=== PATIENT | male | born 1955 | race Caucasian/White ===

== ENCOUNTER 2017-05-15 10:40 | Day surgery (SDC) | payer OTHER ==
[2017-05-09 10:45] VITALS: BMI 29.7
[~2017-05-15 10:40] MED LIST: HYDROmorphone 1 MG/ML 1 ML SYRINGE IVP PRN; MORPHINE SULFATE 5 MG/ML SYRINGE IV PRN; ceFAZolin IN SWFI 2 GM/20 ML SYRINGE IVP ONE
[2017-05-15] MEDS ORDERED: LIDOCAINE 1% 20 ML VIAL (10MG/ML) FOR IV START INTRADERMA ONE (11:30)
[2017-05-15] MEDS: LACTATED RINGERS 1,000 ML IV SCH ×2 (11:38→16:56)
[2017-05-15] MEDS ORDERED: ONDANSETRON 4 MG/2 ML VIAL IVP ONE (11:44)
[2017-05-15] MEDS ORDERED: DEXAMETHASONE SOD PHOSPHATE 10 MG/ML 1 ML VIAL IV ONE (11:45)
[2017-05-15 12:03] LABS: Basophils # (A) 0.1 k/uL (0-0.2); Basophils % (A) 1 %; Eosinophils # (A) 0.2 k/uL (0-0.7); Eosinophils % (A) 3 %; HGB 15.7 gm/dL (13.0-17.5); Lymphocytes # (A) 1.4 k/uL (1.0-4.8); Lymphocytes % (A) 16 %; MCH 29.9 pg (25.0-35.0); MCHC 32.6 g/dL (31.0-37.0); MCV 91.6 fL (80.0-100.0); Mean Platelet Volume 7.9; Monocytes # (A) 0.5 k/uL (0-1.0); Monocytes % (A) 6 %; Neutrophils # (A) 6.9 k/uL (1.3-7.7); Neutrophils % (A) 74 %; Platelet Count 354 k/uL (150-450); RBC 5.24 m/uL (4.30-5.90); RDW 12.9 % (11.5-15.5); WBC 9.3 k/uL (3.8-10.6)
[2017-05-15 12:15] LABS: Anion Gap 11 mmol/L; Blood Urea Nitrogen 21 mg/dL (9-20); Calcium 10.2 mg/dL (8.4-10.2); Carbon Dioxide 26 mmol/L (22-30); Chloride 105 mmol/L (98-107); Glucose 101 mg/dL (74-99); Potassium 4.6 mmol/L (3.5-5.1); Sodium 142 mmol/L (137-145)
[2017-05-15] MEDS ORDERED: MIDAZOLAM 2 MG/2 ML VIAL ONE (12:33)
[2017-05-15] MEDS ORDERED: PROPOFOL 10 MG/ML 20 ML VIAL IV ONE (12:33)
[2017-05-15] MEDS ORDERED: fentaNYL (PF) 50 MCG/ML 2 ML AMP ONE (12:33)
[2017-05-15] MEDS ORDERED: ceFAZolin 1,000 MG in SODIUM CHLORIDE 0.9% 1,000 ML IRRIGATION ONE (13:54)
[2017-05-15] MEDS ORDERED: HYDROcodone/APAP 5-325MG 1 EACH TAB PO PRN (14:17)
[2017-05-15] MEDS ORDERED: ONDANSETRON 4 MG/2 ML VIAL IVP PRN (14:17)
[2017-05-15] MEDS ORDERED: hydrOXYzine PAMOATE 25 MG CAP PO PRN (14:17)
[2017-05-15] MEDS ORDERED: TEMAZEPAM 15 MG CAP PO PRN (14:17)
[2017-05-15] MEDS ORDERED: HYDROmorphone 1 MG/ML 1 ML SYRINGE IVP PRN ×3 (14:17)
[2017-05-15] MEDS ORDERED: SENNOSIDES-DOCUSATE SODIUM 1 EACH TAB PO PRN (14:17)
--- NOTE | 2017-05-15 14:27 | XR ---
Fluoroscopy INDICATION: Pain FINDINGS: Images obtained: 2. IMPRESSIONS: 1. Documentation of fluoroscopy.
--- NOTE | 2017-05-15 14:34 | XR ---
Fluoroscopy INDICATION: Pain FINDINGS: Fluoroscopy is provided for open reduction internal fixation of the left ankle. 2 x-rays are presente d ovary plaster splint. Open reduction internal fixation of the distal fibula is evident. Multiple montanez rgical skin guanako are present. IMPRESSIONS: 1. Status post open reduction internal fixation distal fibula
--- NOTE | 2017-05-15 15:27 | FL ---
Fluoroscopy INDICATION: Pain FINDINGS: Fluoroscopy time: 7 seconds. Images obtained: 2. IMPRESSIONS: 1. Documentation of fluoroscopy.
[2017-05-15] MEDS: ceFAZolin IN SWFI 2 GM/20 ML SYRINGE IVP SCH (16:56)
[2017-05-15] MEDS: HYDROcodone/APAP 5-325MG 1 EACH TAB PO PRN (17:51)
[2017-05-15] MEDS: ASPIRIN 325 MG TAB PO SCH (20:14)
[2017-05-16] MEDS: LACTATED RINGERS 1,000 ML IV SCH ×3 (00:09→10:25)
[2017-05-16] MEDS: ceFAZolin IN SWFI 2 GM/20 ML SYRINGE IVP SCH (00:55)
[2017-05-16] MEDS: HYDROcodone/APAP 5-325MG 1 EACH TAB PO PRN ×2 (01:00→07:10)
[2017-05-16 07:08] VITALS: BP 133/74; PULSE 67; RESP 14; TEMP 97.7
[2017-05-16 07:11] LABS: Glucose,Whole Blood 92 mg/dL (75-99)
[2017-05-16] MEDS: ASPIRIN 325 MG TAB PO SCH (08:09)
[2017-05-16] MEDS ORDERED: HYDROcodone/APAP 7.5-325MG 1 EACH TAB PO PRN ×2 (08:32)
--- NOTE | 2017-05-16 08:36 | P.DS ---
Providers Expected date of discharge: 05/16/17 Attending physician: Dwaine Campbell Consults: 05/15/17 14:17 Consult Physician Routine Consulting Provider: Tong Sexton Consult Reason/Comments: medical management Do you want consulting provider notified?: Yes Primary care physician: Tong Sexton - Discharge Diagnosis(es) (1) Tear of deltoid ligament of left ankle Status: Acute (2) Left fibular fracture Status: Acute (3) Status post open reduction with internal fixation (ORIF) of fracture of ankle Status: Acute Hospital Course: This is a 61-year-old male with known history of left ankle pain after a fall. The patient presented to the orthopedic office for evaluation. After discussion and consideration patient was found to have a left fibula fracture and possible deltoid ligament tear that requires surgical intervention. The patient is seen preoperatively by his primary care physician and cleared for surgery. Patient is admitted to observation at [facility] on 05/15/2017 for an ORIF of the left distal fibula with medial deltoid ligament repair. The procedures performed without complication or sequelae. The patient is doing well postoperatively. Labs and vital signs are stable on day of discharge. On day of discharge patient's dressing and splint to the left lower extremity is clean, dry, and intact. There is minimal soft tissue swelling to the left lower extremity. Patient is able to wiggle his toes freely without difficulty Neurovascular status to the left lower extremity is intact. Patient is discharged to home in good condition. Pertinent Studies: Laboratory Tests 05/15/17 11:51 WBC 9.3 RBC 5.24 Hgb 15.7 Hct 48.0 Patient Condition at Discharge: Stable Plan - Discharge Summary Discharge Rx Participant: No New Discharge Prescriptions: New Cephalexin [Keflex] 500 mg PO Q8HR #15 cap HYDROcodone/APAP 7.5-325MG [[place] 7.5-325] 1 - 2 tab PO Q4-6H PRN #90 tab PRN Reason: Pain Aspirin 325 mg PO BID tab Continue Aspirin 325 mg PO BID No Action Metoprolol Tartrate 25 mg PO BID Multivitamin [Men's Multi-Vitamin] 1 each PO DAILY Losartan/Hydrochlorothiazide [Losartan-Hctz 100-25 mg Tab] 1 each PO DAILY Discharge Medication List Aspirin 325 mg PO BID 05/09/17 [History] Losartan/Hydrochlorothiazide [Losartan-Hctz 100-25 mg Tab] 1 each PO DAILY 05/09 [History] Metoprolol Tartrate 25 mg PO BID 05/09/17 [History] Multivitamin [Men's Multi-Vitamin] 1 each PO DAILY 05/09/17 [History] Aspirin 325 mg PO BID tab 05/16/17 [Rx] Cephalexin [Keflex] 500 mg PO Q8HR #15 cap 05/16/17 [Rx] HYDROcodone/APAP 7.5-325MG [[place] 7.5-325] 1 - 2 tab PO Q4-6H PRN #90 tab [Rx] Follow up Appointment(s)/Referral(s): Dwaine Campbell DO [Doctor of Osteopathic Medicine] - 05/30/17 2:00 pm Tong Sexton MD [Primary Care Provider] - 05/27/17 11:10 am Patient Instructions/Handouts: ORIF of an Ankle Fracture (DC) Activity/Diet/Wound Care/Special Instructions: Keep splint clean, dry, and intact Elevate and ice left foot Follow up with Dr. Campbell in 10 days Call [facility] with any questions or concerns, [phone]. Discharge Disposition: HOME SELF-CARE
[2017-05-16] MEDS ORDERED: HYDROmorphone 2 MG/ML 1 ML SYRINGE IVP PRN ×3 (08:44→08:45)
--- NOTE | 2017-05-16 08:57 | P.CONS ---
History of Present Illness - Reason for Consult Consult date: 05/16/17 Review of Systems Constitutional: Denies chills, Denies fever Eyes: denies blurred vision, denies pain Ears, nose, mouth and throat: Denies headache, Denies sore throat Cardiovascular: Denies chest pain, Denies shortness of breath Respiratory: Denies cough Past Medical History Past Medical History: Hypertension History of Any Multi-Drug Resistant Organisms: None Reported Past Surgical History: Tonsillectomy Additional Past Surgical History / Comment(s): L hand surgery. Past Anesthesia/Blood Transfusion Reactions: No Reported Reaction Past Psychological History: No Psychological Hx Reported Smoking Status: Current some day smoker Past Alcohol Use History: None Reported Additional Past Alcohol Use History / Comment(s): Smokes 1 pack per week. Drinks just slightly more than 14 drinks per week. Past Drug Use History: None Reported - Past Family History Mother Family Medical History: No Reported History Medications and Allergies Home Medications Medication Instructions Recorded Confirmed Type Aspirin 325 mg PO BID 05/09/17 05/15/17 History Losartan/Hydrochlorothiazide 1 each PO DAILY 05/09/17 05/15/17 History [Losartan-Hctz 100-25 mg Tab] Metoprolol Tartrate 25 mg PO BID 05/09/17 05/15/17 History Multivitamin [Men's Multi-Vitamin] 1 each PO DAILY 05/09/17 05/15/17 History Aspirin 325 mg PO BID tab 05/16/17 Rx Cephalexin [Keflex] 500 mg PO Q8HR #15 cap 05/16/17 Rx HYDROcodone/APAP 7.5-325MG [[place] 1 - 2 tab PO Q4-6H PRN #90 tab 05/16/17 Rx 7.5-325] Allergies Allergy/AdvReac Type Severity Reaction Status Date / Time meperidine [From Demerol] Allergy Nausea & Verified 05/15/17 11:24 Vomiting Physical Exam Vitals: Vital Signs Temp Pulse Resp BP BP Pulse Ox 05/16/17 07:00 97.7 F 67 14 133/74 97 05/16/17 00:05 97.4 F L 71 16 105/63 98 05/15/17 20:18 98.0 F 69 12 118/67 97 05/15/17 16:15 66 175/75 05/15/17 16:00 50 L 125/75 05/15/17 15:45 50 L 93/68 05/15/17 15:30 55 L 130/76 05/15/17 15:15 52 L 125/77 05/15/17 15:00 98.1 F 51 L 16 125/77 96 05/15/17 14:45 53 L 16 118/68 94 L 05/15/17 14:30 58 L 16 114/63 93 L 05/15/17 14:13 97.8 F 55 L 14 102/60 94 L 05/15/17 11:23 97.7 F 57 L 16 141/69 96 Intake and Output 05/15/17 05/16/17 05/16/17 22:59 06:59 14:59 Intake Total 236 250 Output Total 400 Balance -164 250 Intake: Oral 236 250 Output: Urine 400 Other: Voiding Method Urinal # Voids 2 - Constitutional General appearance: no acute distress - EENT Eyes: EOMI - Neck Neck: no lymphadenopathy - Respiratory Respiratory: bilateral: CTA - Cardiovascular Rhythm: regular Heart sounds: normal: S1, S2 - Gastrointestinal General gastrointestinal: soft, no tenderness - Integumentary Integumentary: no cellulitis - Neurologic Neurologic: CNII-XII intact Results CBC & Chem 7: 05/15/17 11:51 05/15/17 11:51 Labs: Abnormal Lab Results - Last 24 Hours (Table) 05/15/17 Range/Units 11:51 BUN 21 H (9-20) mg/dL Glucose 101 H (74-99) mg/dL Assessment and Plan (1) Essential (primary) hypertension Current Visit: Yes Status: Acute Code(s): I10 - ESSENTIAL (PRIMARY) HYPERTENSION SNOMED Code(s): 17146784 (2) Left fibular fracture Current Visit: Yes Status: Acute Code(s): S82.402A - UNSP FRACTURE OF SHAFT OF LEFT FIBULA, INIT FOR CLOS FX SNOMED Code(s): 05737852 Plan: Continue follow from a surgical perspective. Otherwise, reconcile home medications.
[2017-05-16] MEDS ORDERED: METOPROLOL TARTRATE 25 MG TAB PO SCH (09:15)
[2017-05-16] MEDS ORDERED: LOSARTAN-HCTZ 50-12.5 MG 1 EACH TAB PO SCH (09:15)
[2017-05-16] MEDS ORDERED: MULTIVITAMINS, THERA 1 EACH TAB PO SCH (12:00)
--- NOTE | 2017-05-16 14:03 | OP ---
OPERATIVE REPORT DATE OF SERVICE: 05/15/2017 SURGEON: Dwaine Campbell DO. ELEVATOR CONSTRUCTOR HELPER: Deborah Fleming NP PREOPERATIVE DIAGNOSES: 1. Displaced fracture of the distal left fibula. 2. Tear of the medial deltoid ligament with lateral subluxation. POSTOPERATIVE DIAGNOSES: 1. Displaced fracture of the distal left fibula. 2. Tear of the medial deltoid ligament with lateral subluxation. OPERATION:: Open reduction internal fixation of a displaced distal left fibula fracture with repair of the medial deltoid ligament. ESTIMATED BLOOD LOSS: SPECIMEN TAKEN: DESCRIPTION OF PROCEDURE: The patient was taken to the operative suite and placed in supine position. Spinal anesthesia was performed by the department of anesthesiology. The Betadine prep was carried out over foot and leg. Sterile drapes applied in the usual manner. Pneumatic tourniquet was inflated to 350 mmHg. A lateral incision was developed over the distal fibular fracture. Blunt dissection through the subcutaneous tissue was performed. Periosteal elevator was utilized in freeing soft tissue from the distal fibula as well as the fracture site. The area was irrigated and hematoma was evacuated. Reduction of the distal fibula was carried out and held with a lobster clamp. A 6 hole plate was then shaped in preparation for securing alignment of distal fibular fracture with a buttress plate. Fixation with 6 hole and 1/4 mm cancellous screws were utilized in stabilizing fracture. X-rays were obtained documented the alignment and stability. A curved incision was developed over the medial and lateral deltoid area. Blunt dissection through the subcutaneous tissue was performed. Direct visualization of the ruptured deltoid ligament was noted. No impingement of soft tissue in tibiotalar area. Following the reduction of this area, a #1 Ethibond suture in horizontal mattress fashion was utilized in reapproximating the deltoid ligament. X-rays were again obtained showing the improvement of the tibiotalar diastasis. The deep fascia was then approximated with 2-0 Vicryl suture. Skin was approximated with 3-0 Quill suture in subcuticular fashion. The lateral wound was closed with 2.0 Vicryl suture and deep tissue approximated with 3.0 Quill suture in subcuticular fashion. Betadine, Adaptic and sterile pressure dressing was applied. Patient was placed in a well-padded splint. Patient was transferred to recovery room in satisfactory postoperative condition. GROSS PATHOLOGY: There was evidence of a displaced fracture of the distal left fibula with tibiotalar diastasis and 3 degree tear of the medial deltoid ligament. IJEOMA / IJN: [id number] / ERIS
== END 2017-05-16 11:30 | disposition home or self-care (01) ==
LOC: OR 10:40 → 3SUR 13:59 → OR 05-16 11:30
PROVIDERS: ATTEND Orthopaedic Surgery
DX: S82.832A Other fracture of upper and lower end of left fibula, initial encounter for closed fracture (principal); S93.422A Sprain of deltoid ligament of left ankle, initial encounter; W00.0XXA Fall on same level due to ice and snow, initial encounter; I10 Essential (primary) hypertension; F17.200 Nicotine dependence, unspecified, uncomplicated; Z79.82 Long term (current) use of aspirin; Z79.899 Other long term (current) drug therapy; Z79.2 Long term (current) use of antibiotics; Z88.5 Allergy status to narcotic agent
CPT/HCPCS: 27792; 27695; 80048; 85025; 73600; C1713; J2250; J1100; J0690 ×3; J2405; J3010; J1170; J2704

== ENCOUNTER → 2017-11-03 | Outpatient (CLI) | payer OTHER ==
[2017-11-03 15:52] LABS: HCT 47.1 % (39.0-53.0); HGB 15.6 gm/dL (13.0-17.5); MCH 29.6 pg (25.0-35.0); MCHC 33.1 g/dL (31.0-37.0); MCV 89.3 fL (80.0-100.0); Mean Platelet Volume 7.6; Platelet Count 320 k/uL (150-450); RBC 5.27 m/uL (4.30-5.90); RDW 13.4 % (11.5-15.5); WBC 8.6 k/uL (3.8-10.6)
[2017-11-03 16:09] LABS: Blood Urea Nitrogen 18 mg/dL (9-20)
== END | disposition home or self-care (01) ==
LOC: LABPAT 15:00
PROVIDERS: ATTEND Internal Medicine Cardiovascular Disease
DX: Z01.812 Encounter for preprocedural laboratory examination (principal); I42.9 Cardiomyopathy, unspecified
CPT/HCPCS: 36415; 82565; 84520; 85027

== ENCOUNTER → 2017-11-10 | Day surgery (SDC) | payer OTHER ==
[2017-11-04 11:21] VITALS: BMI 30.3
[~2017-11-10] MED LIST changes: +ALPRAZolam 0.25 MG TAB PO PRN; +ALPRAZolam 0.5 MG TAB PO PRN; +ASPIRIN 325 MG TAB PO STA; +ATORVASTATIN 80 MG TAB PO STA; +HEPARIN SODIUM 1,000 UN/ML (10ML VL) IV ONE; -HYDROmorphone 1 MG/ML 1 ML SYRINGE IVP PRN; +IOPAMIDOL-370 125ML BTL INJ ONE; +LIDOCAINE 1% INJ 10MG/ML (20 ML MDV) SQ ONE; +MIDAZOLAM 2 MG/2 ML VIAL IVP ONE; -MORPHINE SULFATE 5 MG/ML SYRINGE IV PRN; +NITROGLYCERIN SL TABS 0.4 MG TAB SUBLINGUAL PRN; +RX INFO: IV CONTRAST WAS GIVEN 1 EACH MISC MISCELLANE PRN; +SODIUM CHLORIDE 0.9% 1,000 ML IV SCH; +SODIUM CHLORIDE 0.9% 1,000 ML in EMPTY BAG 1 BAG IV ONE; +VERAPAMIL SYRINGE (5 MG/10 ML) INTRAARTER ONE; -ceFAZolin IN SWFI 2 GM/20 ML SYRINGE IVP ONE; +fentaNYL (PF) 50 MCG/ML 2 ML AMP IVP ONE
[2017-11-10 11:34] VITALS: TEMP 97.8
[2017-11-10 16:05] VITALS: BP 106/57; PULSE 49; RESP 18
--- NOTE | 2017-11-10 19:17 | P.CARDCATH ---
Date of Procedure: 11/10/17 Preoperative Diagnosis: Exercise induced V. tach, cardiomyopathy Postoperative Diagnosis: Normal coronary arteries. Normal LV function. Elevated end-diastolic pressures Procedure(s) Performed: Left heart catheterization with left ventriculography Description of Procedure: HISTORY: This is a 62-year-old gentleman with history of cardiomyopathy and cardiac arrhythmia in the form of SVT who recently had a stress test. Patient developed episodes of polymorphic V. tach. He is advised to have a cardiac catheterization for definitive diagnosis. CONSENT:I have discussed the risks, benefits and alternative therapies for the above-mentioned procedure and for both sedation/analgesia as well as necessary blood product administration, if indicated, as they pertain to this patient. The patient has indicated understanding and acceptance of the risks and procedures discussed. PROCEDURE: Patient was brought to the lab in a fasting state. Patient was given some IV sedation. The right wrist is infiltrated with lidocaine and right radial artery was entered using Seldinger technique. A 6-Frisian catheter was left in place and selective coronary arteriography and left ventriculography was performed. Patient tolerated the procedure well. TR band was applied for hemostasis .No immediate complications were noted and patient was transferred to [facility] in a stable condition. He and patient will be discharged home later today Conscious Sedation: Versed 1 mg Fentanyl 50 g Duration 26 minutes HEMODYNAMICS: The aortic pressure is about 130/80. Left ankle end-diastolic pressure is about 20-25. There was no gradient across the aortic valve SELECTIVE CORONARY ARTERIOGRAPHY: LEFT MAIN: Normal length and patent THE LEFT ANTERIOR DESCENDING CORONARY ARTERY: Good caliber vessel and free of occlusive disease THE LEFT CIRCUMFLEX AND IS CORONARY ARTERY: Good caliber vessel. Free of occlusive disease THE RIGHT CORONARY ARTERY: Dominant vessel and free of occlusive disease LEFT VENTRICULOGRAPHY: Revealed normal-sized cardiac silhouette with preserved LV function FINAL IMPRESSION: Normal coronary arteries. Elevated end-diastolic pressure and diastolic dysfunction PLAN: Maximum medical therapy and risk factor modification PROGNOSIS: Fair
== END ==
LOC: CATHCVL 10:52
PROVIDERS: ATTEND Internal Medicine Cardiovascular Disease
DX: I47.1 Supraventricular tachycardia (principal); R94.39 Abnormal result of other cardiovascular function study; I42.6 Alcoholic cardiomyopathy; I10 Essential (primary) hypertension; R60.0 Localized edema; I49.3 Ventricular premature depolarization; F10.10 Alcohol abuse, uncomplicated; F17.210 Nicotine dependence, cigarettes, uncomplicated; Z79.899 Other long term (current) drug therapy; Z88.5 Allergy status to narcotic agent
CPT/HCPCS: 93458; 84132; C1894; C1769; J2250; J2001; J3010; J1644; Q9967

== ENCOUNTER → 2019-01-25 | Outpatient (CLI) | payer OTHER ==
[2019-01-25 08:06] LABS: HCT 44.9 % (39.0-53.0); HGB 15.5 gm/dL (13.0-17.5); MCH 31.3 pg (25.0-35.0); MCHC 34.5 g/dL (31.0-37.0); MCV 90.6 fL (80.0-100.0); Mean Platelet Volume 7.8; Platelet Count 309 k/uL (150-450); RBC 4.95 m/uL (4.30-5.90); RDW 13.7 % (11.5-15.5); WBC 6.2 k/uL (3.8-10.6)
[2019-01-25 08:16] LABS: African American GFR (CKD) >90 (>60 ml/min/1.73 sqM); Anion Gap 9 mmol/L; Blood Urea Nitrogen 17 mg/dL (9-20); Carbon Dioxide 27 mmol/L (22-30); Chloride 106 mmol/L (98-107); Glucose 164 mg/dL (74-99); Potassium 4.1 mmol/L (3.5-5.1); Sodium 142 mmol/L (137-145)
== END | disposition home or self-care (01) ==
LOC: LABPAT 07:32
PROVIDERS: ATTEND Internal Medicine Clinical Cardiac Electrophysiology
DX: Z01.812 Encounter for preprocedural laboratory examination (principal); I47.1 Supraventricular tachycardia; I47.2 Ventricular tachycardia
CPT/HCPCS: 36415; 80051; 82565; 82947; 84443; 84520; 85027

== ENCOUNTER 2019-02-02 09:32 | Day surgery (SDC) | payer OTHER ==
[~2019-02-02 09:32] MED LIST changes: -ALPRAZolam 0.25 MG TAB PO PRN; -ALPRAZolam 0.5 MG TAB PO PRN; -ASPIRIN 325 MG TAB PO STA; -ATORVASTATIN 80 MG TAB PO STA; -HEPARIN SODIUM 1,000 UN/ML (10ML VL) IV ONE; -IOPAMIDOL-370 125ML BTL INJ ONE; -LIDOCAINE 1% INJ 10MG/ML (20 ML MDV) SQ ONE; -MIDAZOLAM 2 MG/2 ML VIAL IVP ONE; -NITROGLYCERIN SL TABS 0.4 MG TAB SUBLINGUAL PRN; -RX INFO: IV CONTRAST WAS GIVEN 1 EACH MISC MISCELLANE PRN; -SODIUM CHLORIDE 0.9% 1,000 ML in EMPTY BAG 1 BAG IV ONE; -VERAPAMIL SYRINGE (5 MG/10 ML) INTRAARTER ONE; -fentaNYL (PF) 50 MCG/ML 2 ML AMP IVP ONE
[2019-02-02] MEDS ORDERED: PROPOFOL 10 MG/ML 20 ML VIAL IV ONE (12:14)
[2019-02-02] MEDS ORDERED: METOPROLOL TARTRATE 5 MG/5 ML VIAL IVP ONE (12:14)
[2019-02-02] MEDS ORDERED: diphenhydrAMINE 50 MG/ML 1 ML VIAL ONE (12:14)
[2019-02-02] MEDS ORDERED: ISOPROTERENOL 250 MCG/1.25 ML SYR IV ONE (12:14)
[2019-02-02] MEDS ORDERED: MIDAZOLAM 2 MG/2 ML VIAL ONE (12:14)
[2019-02-02] MEDS ORDERED: GLYCOPYRROLATE 0.2 MG/ML 2 ML VIAL ONE (12:14)
[2019-02-02] MEDS ORDERED: fentaNYL (PF) 50 MCG/ML 2 ML AMP ONE (12:14)
--- NOTE | 2019-02-02 12:54 | P.HPCAR ---
History of Present Illness This is Amy Song PA-C dictating an H&P on this patient The patient was interviewed and examined by me as well as by Dr. Thompson Case discussed with Dr. Thompson and he agrees with the plan of care IMPRESSION / ASSESSMENT: Exercise-induced nonsustained ventricular tachycardia, symptomatic Frequent PVCs Exercise-induced supraventricular tachycardia Normal coronary arteries Nonischemic cardiomyopathy, cardiac echo MRI showing a mildly reduced global systolic function, EF 50%, focal areas of gadolinium enhancement in non ischemic distribution PLAN: proceed with diagnostic EP study and further management there after HPI Patient is a 63-year-old male with a past medical history of hypertension, SVT, exercise-induced ventricular arrhythmias, and nonischemic cardiomyopathy who presents for evaluation and management of nonsustained ventricular tachycardia, frequent PVCs, and SVT. Patient has had symptoms of shortness of breath with moderate to high intensity exertion for the last several years. He underwent evaluation with multiple stress tests which showed NSVT, frequent PVCs and SVT with exercise. Coronary angiogram showed normal coronary arteries. Echocardiogram showed EF 50%. Cardiac MRI showed dilated LV with mildly reduced global systolic function, EF 50%, focal areas of late gadolinium enhancement within the basal septum and mid distal inferior LV wall in the nonischemic distribution. Patient seen and examined resting in bed. Denies dizziness, lightheadedness, palpitations or syncope. Denies chest pain or shortness of breath recently. He only gets short of breath if he "overexerts himself". Sleeps comfortably at night, no orthopnea or PND. He was recently treated for an upper respiratory infection with oral antibiotics. His last dose was today. States he is feeling better, no fevers or chills. ROS: No fevers, chills or rigors, no cough, phlegm or expectoration, no nausea, vomiting or diarrhea, no hematuria, dysuria, no musculoskeletal complaints, no strokes or seizures, no skin lesions. EXAMINATION: Temperature 98.8F, pulse 56, respirations 16, blood pressure 136/75, oxygen saturation 96% on room air Patient seen and examined resting comfortably in bed, in no acute distress Lungs are clear to auscultation bilaterally, no wheezing rhonchi or crackles Heart is regular, normal S1-S2, no murmurs noted No elevated JVD No lower extremity edema Abdomen soft, nontender REVIEW OF LABS, ECG & MEDICAL DATA Most recent labs reviewed, WBC 6.2, hemoglobin 15.5, platelets 309, potassium 4.1, BUN 17, creatinine 0.79, TSH 1.28 Physical Exam Vitals: Vital Signs Temp Pulse Resp BP Pulse Ox 02/02/19 10:28 98.8 F 56 L 16 136/75 96 Intake and Output 02/01/19 02/02/19 02/02/19 22:59 06:59 14:59 Intake Total 20 Balance 20 Intake: IV 20 Past Medical History Past Medical History: Hypertension, Pneumonia Additional Past Medical History / Comment(s): Hx "walking Pneumonia 2 weeks ago." History of Any Multi-Drug Resistant Organisms: None Reported Past Surgical History: Orthopedic Surgery, Tonsillectomy Additional Past Surgical History / Comment(s): Left hand surgery, left ankle surgery with plate. Past Anesthesia/Blood Transfusion Reactions: No Reported Reaction Past Psychological History: No Psychological Hx Reported Smoking Status: Current some day smoker Past Alcohol Use History: Heavy Additional Past Alcohol Use History / Comment(s): Smokes 1 pack per week. Drinks one case of beer per week. Past Drug Use History: None Reported - Past Family History Mother Family Medical History: No Reported History Physical Examination Vital Signs Temp Pulse Resp BP Pulse Ox 02/02/19 10:28 98.8 F 56 L 16 136/75 96 Intake and Output 02/01/19 02/02/19 02/02/19 22:59 06:59 14:59 Intake Total 20 Balance 20 Intake: IV 20 Results Current Medications Generic Name Dose Route Start Last Admin Trade Name Freq PRN Reason Stop Dose Admin Sodium Chloride 1,000 mls @ 20 mls/hr 02/02/19 06:14 02/02/19 10:28 Saline 0.9% IV 20 mls .Q24H SHANICE Administration Intake and Output 02/01/19 02/02/19 02/02/19 22:59 06:59 14:59 Intake Total 20 Balance 20 Intake: IV 20
[2019-02-02] MEDS ORDERED: LIDOCAINE 1% INJ 10MG/ML (20 ML MDV) ONE ×3 (12:55→15:50)
[2019-02-02] MEDS ORDERED: LIDOCAINE 1% INJ 10MG/ML (20 ML MDV) SQ ONE ×2 (13:02→16:27)
[2019-02-02] MEDS ORDERED: SODIUM CHLORIDE 0.9% 1,000 ML IV ONE (15:01)
[2019-02-02] MEDS ORDERED: IOPAMIDOL-250 50ML BTL IV ONE (15:15)
[2019-02-02] MEDS ORDERED: SODIUM CHLORIDE 0.9% 1,000 ML IV SCH ×2 (15:15)
[2019-02-02] MEDS ORDERED: ceFAZolin 1,000 MG in SODIUM CHLORIDE 0.9% IRRIGATIO 250 ML IRRIGATION ONE (15:32)
[2019-02-02] MEDS ORDERED: HYDROcodone/APAP 5-325MG 1 EACH TAB PO PRN (17:24)
[2019-02-02] MEDS ORDERED: ACETAMINOPHEN TAB 325 MG TAB PO PRN (17:24)
[2019-02-02 18:15] VITALS: BMI 29.9
[2019-02-02 18:21] VITALS: RESP 18
[2019-02-02] MEDS ORDERED: ACETAMINOPHEN IV (For NPO) 1,000 MG in EMPTY BAG 1 BAG IVPB ONE (19:00)
[2019-02-02] MEDS: APIXABAN 5 MG TAB PO SCH (19:41)
[2019-02-02] MEDS: SOTALOL 80 MG TAB PO SCH (19:41)
[2019-02-02] MEDS ORDERED: PRAVASTATIN SODIUM 20 MG TAB PO SCH (21:00)
--- NOTE | 2019-02-02 22:15 | PCN ---
PROCEDURE NOTE Neil Roberts is a 63-year-old male patient who has exercise-induced arrhythmias. He has frequent PVCs, nonsustained runs of VT as well as exercise induced VT. Some of these nonsustained runs are polymorphic. In addition, he has nonsustained runs of atrial tachycardia. His coronary arteries are normal. His 2D echo showed ejection fraction of 50%. He underwent a cardiac MRI that showed left ventricular ejection fraction of 50%. The LV was mildly dilated. There were focal areas of late gadolinium enhancement in the basal septum and the mid to distal inferior LV wall with nonischemic distribution. He does not have congestive heart failure. He is brought in for diagnostic EP study to assess for ventricular arrhythmias as well as for atrial arrhythmias and underwent a detailed EP study. DESCRIPTION OF PROCEDURE: Patient was brought to the EP lab in a fasting state. Written informed consent was obtained prior to the procedure. The right groin was prepped and draped as per protocol. Three venous sheaths were placed in the right femoral vein. Via these, 3 diagnostic catheters were placed in the right heart (high right atrial catheter, His bundle catheter, RV catheter). Baseline measurements were as follows: Sinus cycle length 917 milliseconds, MS interval 172 milliseconds, QRS 116 milliseconds, QT interval 425 milliseconds. The baseline AH interval 93 milliseconds, HV interval 33 milliseconds. Sinus node recovery times at 600, 500 and 400 milliseconds were 660 milliseconds, 1260 and 770 milliseconds. This is consistent with possible sinus node entrance block. No delta waves. No slow pathway conduction. AV node Wenckebach block 350 milliseconds, VA Wenckebach block 370 milliseconds. Ventricular extra stimulation was performed up to double extra stimuli. Atrial extra stimulation was performed after double extra stimuli. Two drive trains were used. Nonsustained runs of ventricular tachycardia were induced. These were short episodes. No sustained arrhythmias were induced. Burst stimulation was performed and long runs of nonsustained ventricular tachycardia were noted with burst stimulation of the RV apex. Two particular episodes were notable. One had a left bundle branch block morphology with an early transition in V2 with positive QRS in lead 1 and AVL, and and negative in AVR and lead 3. The 2nd nonsustained run had initially had a left bundle branch block morphology and then switched over to right bundle branch block morphology. Thereafter, Isuprel was used and burst stimulation was once again performed. At a pacing cycle length of 370 milliseconds, ventricular flutter like rhythm was induced (very fast VT with a cycle length of 180 milliseconds. This had a right bundle branch block like morphology, but the lead 1 and aVL were completely negative (QS pattern). This patient was pace terminated successfully. However, with high-dose Isuprel, he went into atrial fibrillation with RVR. Given organized atrial fibrillation. Isuprel was stopped. IV metoprolol was used to reverse Isuprel because the patient was having different morphologies of nonsustained VT on Isuprel. At the end of the procedure, catheter was removed and there was a detailed discussion with the patient, who was almost completely awake through most of the procedure. Subsequently, I discussed this with the family members. I recommended a dual-chamber ICD implant for secondary prevention of sudden cardiac in view of the fact that we had easily induced ventricular flutter with burst stimulation at 370 milliseconds on Isuprel. In addition to the runs of nonsustained ventricular tachycardia he was experiencing without Isuprel. He does have a mildly abnormal cardiac MRI with relatively preserved LV systolic function. A dual-chamber ICD is being recommended because I will also treat him with sotalol and he does have evidence of sinus node dysfunction and atrial arrhythmias, and I would treat him with high-dose beta blockers as well as the sotalol for suppression of arrhythmias. The family was in agreement. The patient was in agreement and we will proceed with a dual- chamber ICD. IMPRESSION: 1. Abnormal EP study with evidence of abnormal sinus node function. 2. Normal AV node function. 3. Easily inducible atrial fibrillation. 4. Very easily inducible long runs of nonsustained ventricular tachycardia of different morphologies and finally easily inducible fast VT, hemodynamically unstable. Almost like like ventricular flutter. Risk of sudden , sudden cardiac arrest is high. MMODL / IJN: [id number] /
--- NOTE | 2019-02-02 22:21 | LTR ---
DATE OF SERVICE: 02/02/2019 Dear Tong: I had the pleasure seeing Mr. Roberts in electrophysiology consultation and in electrophysiology follow up. As you know, Mr. Roberts has very frequent runs of exercise induced VT of differing morphologies. He also has runs of atrial tachycardia. His cardiac MRI shows mildly dilated left ventricle, ejection fraction 50%, but 2 areas of delayed enhancement, one in the basal septum and the other in the inferior wall. He underwent a diagnostic EP study and was able to induce runs of nonsustained ventricular tachycardia of different morphologies, but finally on Isuprel, I was able to induce very fast VT, hemodynamically unstable, almost like ventricular flutter. In addition, I also induced atrial fibrillation. In view of his history, the abnormal cardiac MRI, he appears to be at very high risk for sudden cardiac arrest despite the fact that his left ventricular systolic function is well preserved and I would recommend implantation of a dual-chamber ICD. I have discussed this with the family members and the patient and they were agreeable with the plan and I will proceed with this today. Subsequently, I would like to treat him with high-dose beta blockers and sotalol for suppression of ventricular tachycardia and atrial fibrillation. Thank you for entrusting me in the care of your patient. Warm regards, Sincerely, IJEOMA / MIREYAN: [id number] /
--- NOTE | 2019-02-02 22:43 | PCN ---
PROCEDURE NOTE Neil Roberts is a 63-year-old male patient who had easily inducible ventricular flutter/fast VT sustained hemodynamically unstable. He has an abnormal cardiac MRI and he has frequent nonsustained ventricular tachycardia of different morphologies. He has an abnormal sinus node function with sinus node entrance block, here abnormal sinus node function, EP study. A dual-chamber ICD was implanted. He also has runs of atrial tachycardia and had easily inducible atrial fibrillation, paroxysmal. DESCRIPTION OF PROCEDURE: Patient was in the EP lab. The left pectoral area was prepped and draped as per protocol. IV antibiotics were administered. A 4 cm incision made parallel to the deltopectoral groove, about 1.5 cm medial to it. The incision was carried down to the level of the pectoralis muscle. A subfascial pocket was made. Hemostasis was assured. The left axillary vein was accessed at 2 separate points under fluoroscopy and via appropriately-sized introducer sheaths 2 leads were positioned in the right heart. The atrial lead was a [employer], 52 cm in length and model #2088TC, serial number [id number]. This was screwed in the right atrial appendage. P waves were 1.2 mV during atrial fibrillation but were in sinus rhythm were between 4-6 mV. Pacing impedance 550 ohms. The RV lead was positioned in the low RV septum. R-waves 11 mV. Pacing impedance 680 ohms, pacing threshold 0.25 V at 0.5 milliseconds, 10 V test was negative. protocol was used for the placement. The leads were secured to the underlying pectoralis fascia using 2 nonabsorbable sutures. Pocket was irrigated with antibiotic solution. Leads were connected to the generator. ([employer] model [id number] Q serial #[id number]). The leads and generator were then placed in subfascial pocket. The wound was closed in 3 layers and dressed per protocol. LEFT UPPER EXTREMITY VENOGRAM: Prior to starting the ICD implant, 50 mL of dye was injected in the left upper arm to identify the axillary vein. The left axillary vein, left subclavian and innominate veins were patent. DFT TESTING UNDER ANESTHESIA: Shock and T-wave protocol was used to induce ventricular fibrillation. This was detected at least sensitivity with 4 drop outs. A 10 joule shock was unsuccessful. High-voltage impedance 72 ohms. However, there was a type 2 conversion thereafter. Further testing was not performed. The device was then programmed with DDD 51/30 with mode switch and a long AV delay to avoid RV pacing. RESULTS: Successful dual-chamber ICD implantation for secondary prevention of sudden cardiac with underlying mild sick sinus syndrome and need for adding antiarrhythmic drug therapy for suppressive therapy for ventricular arrhythmias or multiple different morphologies as well as atrial tachycardia and inducible atrial fibrillation. PLAN: Start sotalol. Switch to Toprol-XL. Start low-dose losartan. Stop losartan hydrochlorothiazide. Stop nadolol and start Pravachol 20 mg p.o. daily and Eliquis for a month to assess the nature of his atrial fibrillation. MMODL / IJN: [id number] /
--- NOTE | 2019-02-03 07:49 | P.DS ---
Providers Attending physician: Eliel Thompson Primary care physician: Tong Cooley [facility] Course: 0365 Plan - Discharge Summary Discharge Rx Participant: Yes New Discharge Prescriptions: New RX: Sotalol [Betapace] 80 mg PO BID #180 tablet RX: Losartan [Cozaar] 25 mg PO DAILY #90 tab Apixaban [Eliquis] 5 mg PO BID #180 tab Pravastatin Sodium [Pravachol] 20 mg PO HS #90 tab RX: Metoprolol Succinate [Toprol XL] 50 mg PO DAILY #90 tab.er.24h Discontinued Losartan/Hydrochlorothiazide [Losartan-Hctz 100-25 mg Tab] 1 each PO DAILY Nadolol [Corgard] 20 mg PO DAILY No Action Multivitamin [Men's Multi-Vitamin] 1 each PO DAILY Discharge Medication List Multivitamin [Men's Multi-Vitamin] 1 each PO DAILY 05/09/17 [History] Apixaban [Eliquis] 5 mg PO BID #180 tab 02/02/19 [Rx] Pravastatin Sodium [Pravachol] 20 mg PO HS #90 tab 02/02/19 [Rx] RX: Losartan [Cozaar] 25 mg PO DAILY #90 tab 02/02/19 [Rx] RX: Metoprolol Succinate [Toprol XL] 50 mg PO DAILY #90 tab.er.24h 02/02/19 [Rx] RX: Sotalol [Betapace] 80 mg PO BID #180 tablet 02/02/19 [Rx] Follow up Appointment(s)/Referral(s): Eliel Thompson MD [STAFF PHYSICIAN] - 1 Week (Follow up with the device clinic in 7 days follow up with Dr. Thompson/Amy Song/Yuni Styles same-day) Activity/Diet/Wound Care/Special Instructions: PATIENT EDUCATION MATERIAL Instructions following a heart rhythm device implant. 1. Keep dressing DRY for 5 DAYS. You may cover the area with Saran or Cling Wrap, prior to a shower. 2. The dressing will be removed in the Device Clinic at [facility]. Absorbable sutures were used to close the wound. 3. Avoid raising the left arm above the shoulder level. 4 week restriction 4. Avoid arm movements, like backscratching, rubbing the head, or pulling on a cord. 4 weeks restriction 5. Gentle range of motion movements of the shoulder, closest to the incision sh ould be performed to avoid a frozen shoulder. (Pendulum exercises of the shoulder) 6. The opposite arm may be used freely. 7. Avoid driving for 7 days. 8. Avoid activities such as golfing, swimming, weed whacking, lifting more than 10 pounds weight, bowling, gymnastics and weight training/lifting. (6 weeks restriction) 9. Activities such as wood chopping with an axe, pull-ups in the gymnasium, power lifting, arc-welding, being close to home induction cooktops will always be a problem. 10. Arm sling is only a reminder not to raise the arm above the head. You do not need to keep the arm completely immobilized. Your free to move the arm and use it and for normal activities. In case of any problems, please call [facility], David Townsend, @ [phone], Attention: Device Clinic Device clinic follow-up in 5 days Follow-up with primary contracting executive in 2-3 months Post EP study 1. Keep access sites dry for 2 days. 2. No heavy lifting or straining for 2 days. 3. Avoid bending the hips repeatedly for 2 days. 4. You may go up and down stairs slowly Call if the following is noted 1. Bleeding, increasing swelling or pain at the access sites. 2. Increasing chest discomfort, especially upon taking a deep breath. 3. Increasing shortness of breath, at rest or with exertion. 4. Undue cough / phlegm 5. Difficulty or pain while swallowing. 6. Pain or change in color in the extremities. 7. Fever, chills, rigors. 8. Increasing headache or neurologic symptoms. 9. Dizziness, fainting, palpitations Stop your losartanhydrochlorothiazide and nadolol start sotalol 80 mg twice daily, losartan 25 mg once daily in the evening, metoprolol succinate 50 mg daily, pravastatin 20 mg at night, and eliquis 5 mg twice daily
--- NOTE | 2019-02-03 07:51 | P.DS ---
Providers Attending physician: Eliel Thompson Primary care physician: Tong Sexton [facility] Course: Patient is doing well from a chronic standpoint. Sitting comfortably in bed minimal discomfort Groins of healed well no hematoma no swelling or pain No chest discomfort dizziness lightheadedness palpitations breathing is comfortable Afebrile 97.8F pulse rate in the 50s blood pressure 126/76. His mercury normal respirations Normal heart sounds S1-S2 is normal no murmurs or gallops or rub Breath sounds are clear no rhonchi no crackles Abdomen is soft nontender Extremity is warm no edema Impression Recurrent exercise-induced arrhythmias namely nonsustained ventricular tachycardia morphologies Frequent PVCs ventricular couplets and nonsustained atrial arrhythmias Inducible atrial fibrillation yesterday the patient is back in sinus rhythm Inducible ventricular flutter/hemodynamically unstable faster VT from the originating in lateral wall of the LV Abnormal cardiac MRI with ejection fraction of 50% mildly dilated LV and delayed enhancement in the basal septum in the mid to distal inferior LV wall Abnormal sinus node function Status post dual-chamber ICD Plan IV antibiotics, chest x-ray, dual-chamber ICD interrogation today Twelve-lead ECG today to check QT interval 1 more dose of ELIQUIS and then stop. Stop losartan and hydrochlorothiazide, stopped nadolol Start Toprol-XL 50 mrem by mouth daily in the morning Losartan 25 mg in the evening Pravachol 20 mg the evening Sotalol 80 mg twice daily in addition to Toprol Follow-up in the device clinic and Follow-up with Dr. Thompson/Amy Song/Yuni Styles for twelve-lead ECG and checking the QT interval after week Patient will stay off work for about a month Plan - Discharge Summary Discharge Rx Participant: Yes New Discharge Prescriptions: New Sotalol [Betapace] 80 mg PO BID #180 tablet Losartan [Cozaar] 25 mg PO DAILY #90 tab Pravastatin Sodium [Pravachol] 20 mg PO HS #90 tab Metoprolol Succinate [Toprol XL] 50 mg PO DAILY #90 tab.er.24h Discontinued Losartan/Hydrochlorothiazide [Losartan-Hctz 100-25 mg Tab] 1 each PO DAILY Nadolol [Corgard] 20 mg PO DAILY No Action Multivitamin [Men's Multi-Vitamin] 1 each PO DAILY Discharge Medication List Multivitamin [Men's Multi-Vitamin] 1 each PO DAILY 05/09/17 [History] Losartan [Cozaar] 25 mg PO DAILY #90 tab 02/02/19 [Rx] Metoprolol Succinate [Toprol XL] 50 mg PO DAILY #90 tab.er.24h 02/02/19 [Rx] Pravastatin Sodium [Pravachol] 20 mg PO HS #90 tab 02/02/19 [Rx] Sotalol [Betapace] 80 mg PO BID #180 tablet 02/02/19 [Rx] Follow up Appointment(s)/Referral(s): Eliel Thompson MD [STAFF PHYSICIAN] - 1 Week (Follow up with the device clinic in 7 days follow up with Dr. Thompson/Amy Song/Yuni Styles same-day) Activity/Diet/Wound Care/Special Instructions: PATIENT EDUCATION MATERIAL Instructions following a heart rhythm device implant. 1. Keep dressing DRY for 5 DAYS. You may cover the area with Saran or Cling Wrap, prior to a shower. 2. The dressing will be removed in the Device Clinic at [facility]. Absorbable sutures were used to close the wound. 3. Avoid raising the left arm above the shoulder level. 4 week restriction 4. Avoid arm movements, like backscratching, rubbing the head, or pulling on a cord. 4 weeks restriction 5. Gentle range of motion movements of the shoulder, closest to the incision should be performed to avoid a frozen shoulder. (Pendulum exercises of the shoulder) 6. The opposite arm may be used freely. 7. Avoid driving for 7 days. 8. Avoid activities such as golfing, swimming, weed whacking, lifting more than 10 pounds weight, bowling, gymnastics and weight training/lifting. (6 weeks restriction) 9. Activities such as wood chopping with an axe, pull-ups in the gymnasium, power lifting, arc-welding, being close to home induction cooktops will always be a problem. 10. Arm sling is only a reminder not to raise the arm above the head. You do not need to keep the arm completely immobilized. Your free to move the arm and use it and for normal activities. In case of any problems, please call [facility], David Townsend, @ [phone], Attention: Device Clinic Device clinic follow-up in 5 days Follow-up with primary cotton expert in 2-3 months Post EP study 1. Keep access sites dry for 2 days. 2. No heavy lifting or straining for 2 days. 3. Avoid bending the hips repeatedly for 2 days. 4. You may go up and down stairs slowly Call if the following is noted 1. Bleeding, increasing swelling or pain at the access sites. 2. Increasing chest discomfort, especially upon taking a deep breath. 3. Increasing shortness of breath, at rest or with exertion. 4. Undue cough / phlegm 5. Difficulty or pain while swallowing. 6. Pain or change in color in the extremities. 7. Fever, chills, rigors. 8. Increasing headache or neurologic symptoms. 9. Dizziness, fainting, palpitations Stop your losartanhydrochlorothiazide and nadolol start sotalol 80 mg twice daily, losartan 25 mg once daily in the evening, metoprolol succinate 50 mg daily, pravastatin 20 mg at night,
[2019-02-03] MEDS: SOTALOL 80 MG TAB PO SCH (08:27)
[2019-02-03] MEDS: APIXABAN 5 MG TAB PO SCH (08:27)
[2019-02-03] MEDS ORDERED: METOPROLOL SUCCINATE (ER) 50 MG TAB.ER.24H PO SCH (09:00)
--- NOTE | 2019-02-03 09:08 | XR ---
EXAMINATION TYPE: XR chest 2V DATE OF EXAM: 02/03/2019 COMPARISON: NONE HISTORY: Lead placement check TECHNIQUE: Frontal and lateral views of the chest are obtained. FINDINGS: There is a generator in left pectoral region, leads are present in the right atrium and ve ntricle. No evident pneumothorax or pleural effusion. Heart size within normal limits. No evident air space disease. Wedge compression deformity present at the lower thoracic spine. IMPRESSION: No evident complication status post lead placement, additional findings above.
[2019-02-03 11:10] VITALS: BP 132/76; PULSE 51; TEMP 97.7
[2019-02-03] MEDS ORDERED: LOSARTAN 25 MG TAB PO SCH (19:00)
== END 2019-02-03 14:44 | disposition home or self-care (01) ==
LOC: CATHEP 09:32 → 1SOBS 17:48 → CATHEP 02-03 14:44
PROVIDERS: ATTEND Internal Medicine Clinical Cardiac Electrophysiology
DX: I49.5 Sick sinus syndrome (principal); I48.0 Paroxysmal atrial fibrillation; I45.2 Bifascicular block; I42.9 Cardiomyopathy, unspecified; I10 Essential (primary) hypertension; F17.210 Nicotine dependence, cigarettes, uncomplicated; Z79.899 Other long term (current) drug therapy; Z87.01 Personal history of pneumonia (recurrent); Z98.890 Other specified postprocedural states; Z90.89 Acquired absence of other organs; Z88.5 Allergy status to narcotic agent
CPT/HCPCS: 93623; 93641; 93620; 33249; 71046; C1894; C1769 ×3; C1892 ×2; C1730 ×2; C1898; C1721; C1777; J2250; J1200; J0690 ×3; J2001; J3010; J0131; J2704; Q9966

== ENCOUNTER → 2021-12-13 | Outpatient (CLI) | payer OTHER, MEDICARE ==
[2021-12-13 18:34] LABS: Albumin 4.1 g/dL (3.8-4.9); Albumin/Globulin Ratio 1.35 (1.60-3.17); Anion Gap 9.4 mmol/L (10.00-18.00); BUN/Creat Ratio 23.71 Ratio (12.00-20.00); Blood Urea Nitrogen 18.4 mg/dL (9.0-27.0); Calcium 9.1 mg/dL (8.7-10.3); Carbon Dioxide 24.2 mmol/L (20.0-27.5); Magnesium 2.2 mg/dL (1.5-2.4); Non-African American GFR(CKD) 94.9 (60.0-200.0); Potassium 4.2 mmol/L (3.5-5.5); Total Bilirubin 0.4 mg/dL (0.30-1.20); Total Protein 7.1 g/dL (6.2-8.2)
== END | disposition home or self-care (01) ==
LOC: LABWHC1 12:48
PROVIDERS: ATTEND Internal Medicine Clinical Cardiac Electrophysiology
DX: I10 Essential (primary) hypertension (principal)
CPT/HCPCS: 36415; 80053; 83735

== ENCOUNTER → 2022-04-22 | Outpatient (CLI) | payer MEDICARE, OTHER ==
[2022-04-22 15:28] LABS: T4, Free (Free Thyroxine) 1.28 ng/dL (0.800-1.800)
== END | disposition home or self-care (01) ==
LOC: LABWHC1 09:57
PROVIDERS: ATTEND Internal Medicine Clinical Cardiac Electrophysiology
DX: I47.20 Ventricular tachycardia, unspecified (principal)
CPT/HCPCS: 36415; 84439; 84443

== ENCOUNTER → 2022-08-21 | Outpatient (CLI) | payer MEDICARE ==
[2022-08-21 15:53] LABS: African American GFR (CKD) 104.5 (60.0-200.0); Anion Gap 10.9 mmol/L (10.00-18.00); BUN/Creat Ratio 18.64 Ratio (12.00-20.00); Blood Urea Nitrogen 16.4 mg/dL (9.0-27.0); Calcium 9.4 mg/dL (8.7-10.3); Carbon Dioxide 26.8 mmol/L (20.0-27.5); Magnesium 2.3 mg/dL (1.5-2.4); Non-African American GFR(CKD) 90.1 (60.0-200.0); Potassium 4.4 mmol/L (3.5-5.5)
== END | disposition home or self-care (01) ==
LOC: LABWHC1 09:35
PROVIDERS: ATTEND Internal Medicine Clinical Cardiac Electrophysiology
DX: I10 Essential (primary) hypertension (principal)
CPT/HCPCS: 36415; 80048; 83735

== ENCOUNTER → 2022-09-27 | Outpatient (CLI) | payer MEDICARE ==
[2022-09-27 15:29] LABS: African American GFR (CKD) 103.8 (60.0-200.0); Albumin/Globulin Ratio 1.46 (1.60-3.17); Anion Gap 7.5 mmol/L (10.00-18.00); BUN/Creat Ratio 15.75 Ratio (12.00-20.00); Blood Urea Nitrogen 14.1 mg/dL (9.0-27.0); Calcium 9.3 mg/dL (8.7-10.3); Carbon Dioxide 29.1 mmol/L (20.0-27.5); Globulin 2.7 g/dL (1.6-3.3); Magnesium 2.3 mg/dL (1.5-2.4); Non-African American GFR(CKD) 89.5 (60.0-200.0); Potassium 4.7 mmol/L (3.5-5.5); Total Bilirubin 0.5 mg/dL (0.30-1.20); Total Protein 6.7 g/dL (6.2-8.2)
== END | disposition home or self-care (01) ==
LOC: LABWHC1 09:35
PROVIDERS: ATTEND Internal Medicine Interventional Cardiology
DX: I10 Essential (primary) hypertension (principal)
CPT/HCPCS: 36415; 80053; 83735

== ENCOUNTER 2022-11-18 05:38 | Day surgery (SDC) | payer MEDICARE ==
[2022-11-18] MEDS ORDERED: SODIUM CHLORIDE 0.9% 1,000 ML IV SCH (05:50)
[2022-11-18] MEDS ORDERED: LACTATED RINGERS 1,000 ML IV SCH (05:50)
[2022-11-18] MEDS ORDERED: MIDAZOLAM 2 MG/2 ML VIAL IV PRN (05:50)
[2022-11-18 06:10] VITALS: RESP 16; TEMP 99.2
[2022-11-18 06:44] LABS: Basophils # (A) 0.1 k/uL (0-0.2); Basophils % (A) 1 %; Eosinophils # (A) 0.4 k/uL (0-0.7); Eosinophils % (A) 5 %; HCT 50.8 % (39.0-53.0); HGB 16.8 gm/dL (13.0-17.5); Lymphocytes # (A) 1.5 k/uL (1.0-4.8); Lymphocytes % (A) 19 %; MCH 30.5 pg (25.0-35.0); MCV 92.5 fL (80.0-100.0); Mean Platelet Volume 9.4; Monocytes # (A) 0.5 k/uL (0-1.0); Monocytes % (A) 6 %; Neutrophils # (A) 5.6 k/uL (1.3-7.7); Neutrophils % (A) 68 %; Platelet Count 261 k/uL (150-450); RDW 14.2 % (11.5-15.5); WBC 8.1 k/uL (3.8-10.6)
[2022-11-18 06:57] LABS: African American GFR (CKD) >90 (>60 ml/min/1.73 sqM); Anion Gap 8 mmol/L; Blood Urea Nitrogen 14 mg/dL (9-20); Calcium 9.1 mg/dL (8.4-10.2); Carbon Dioxide 27 mmol/L (22-30); Chloride 106 mmol/L (98-107); Glucose 109 mg/dL (74-99); Non-African American GFR(CKD) >90 (>60 ml/min/1.73 sqM); Potassium 4.2 mmol/L (3.5-5.1); Sodium 141 mmol/L (137-145)
[2022-11-18] MEDS ORDERED: HYDROmorphone 0.5 MG/0.5 ML SYRINGE IVP PRN (07:00)
--- NOTE | 2022-11-18 07:40 | P.HPCAR ---
History of Present Illness This is Dr. Thompson dictating an H/P on this patient The patient was interviewed and examined IMPRESSION / ASSESSMENT: Nonischemic cardio myopathy Recurrent ventricular tachycardia slight sotalol Multiple different PVCs, frequent but of multiple different morphologies, some clearly epicardial in nature, some septal in location Exercise-induced polymorphic VT Left ventricular ejection fraction of about 50% with very mild augmentation on dobutamine infusion PLAN: Noninvasive program stimulation for reassessment of antiarrhythmic therapy HPI Patient feels well. He shortness of breath is better. He has not had any syncopal spells However he continues to have episodes of fast, long nonsustained spells despite sotalol and beta dre therapy He is a [employer] dual-chamber ICD in situ ROS: No fever chills or rigors, no cough, phlegm or expectoration, no nausea, vomiting or diarrhea, no hematuria, dysuria, no musculoskeletal complaints, no strokes or seizures, no skin lesions. EXAMINATION: Temperature 90.9, pulse rate 52, blood pressure 150-87 mmHg No JVD No orthopnea Flory lungs no rhonchi no crackles Normal heart sounds No lower extremity edema No signs of heart failure REVIEW OF LABS, ECG & MEDICAL DATA 8000 white count, hemoglobin 16.8 Platelet count 261,000 Electrolytes normal sodium 141, potassium 4.2 BUN and creatinine are normal at 14 and 0.8 TSH 5.7 Physical Exam Vitals: Vital Signs Temp Pulse Resp BP Pulse Ox 11/18/22 06:09 99.2 F 52 L 16 158/87 98 Intake and Output 11/17/22 11/18/22 11/18/22 22:59 06:59 14:59 Intake Total 50 0 Balance 50 0 Intake: IV 50 0 Other: Weight 110.4 kg Past Medical History Past Medical History: Hypertension Additional Past Medical History / Comment(s): hx pneumonia, see H&P per Dr Thompson History of Any Multi-Drug Resistant Organisms: None Reported Past Surgical History: AICD, Orthopedic Surgery, Tonsillectomy Additional Past Surgical History / Comment(s): Left hand surgery, left ankle surgery with plate. dual chamber ICD 2019 Past Anesthesia/Blood Transfusion Reactions: No Reported Reaction Type of Cardiac Device: AICD Device Placement Date:: [facility] Smoking Status: Former smoker - Past Family History Mother Family Medical History: No Reported History Physical Examination Vital Signs Temp Pulse Resp BP Pulse Ox 11/18/22 06:09 99.2 F 52 L 16 158/87 98 Intake and Output 11/17/22 11/18/22 11/18/22 22:59 06:59 14:59 Intake Total 50 0 Balance 50 0 Intake: IV 50 0 Other: Weight 110.4 kg Results 11/18/22 06:05 11/18/22 06:05 CBC 11/18/22 Range/Units 06:05 WBC 8.1 (3.8-10.6) k/uL RBC 5.50 (4.30-5.90) m/uL Hgb 16.8 (13.0-17.5) gm/dL Hct 50.8 (39.0-53.0) % Plt Count 261 (150-450) k/uL Comprehensive Metabolic Panel 11/18/22 Range/Units 06:05 Sodium 141 (137-145) mmol/L Potassium 4.2 (3.5-5.1) mmol/L Chloride 106 (98-107) mmol/L Carbon Dioxide 27 (22-30) mmol/L BUN 14 (9-20) mg/dL Creatinine 0.78 (0.66-1.25) mg/dL Glucose 109 H (74-99) mg/dL Calcium 9.1 (8.4-10.2) mg/dL Current Medications Generic Name Dose Route Start Last Admin Trade Name Freq PRN Reason Stop Dose Admin Hydromorphone HCl 0.5 mg 11/18/22 07:00 Hydromorphone 0.5 Mg/0.5 Ml Syringe IVP 11/18/22 23:00 Q5M PRN Phase 1 or 2 - Pain Control Sodium Chloride 1,000 mls @ 20 mls/hr 11/18/22 05:50 11/18/22 05:10 Saline 0.9% IV 12/18/22 05:51 50 mls .Q24H SHANICE Administration Lactated Ringer's 1,000 mls @ 20 mls/hr 11/18/22 05:50 Lactated Ringers IV 12/18/22 05:51 .Q24H SHANICE Midazolam HCl 2 mg 11/18/22 05:50 Midazolam 2 Mg/2 Ml Vial IV 11/19/22 05:51 ONCE PRN Pre-Op Anxiety Intake and Output 11/17/22 11/18/22 11/18/22 22:59 06:59 14:59 Intake Total 50 0 Balance 50 0 Intake: IV 50 0 Other: Weight 110.4 kg 11/18/22 06:05 11/18/22 06:05
--- NOTE | 2022-11-18 08:32 | P.EPPROC ---
- EP Procedure Note Electrophysiology Procedure Note: Diagnosis Recurrent monomorphic VT despite sotalol Result Noninvasive program stimulation revealed inducible sustained VT with spontaneous termination, cycle length 236 ms However this was not reproducible finding Other shorter runs of nonsustained VT of different morphologies Multiple different spontaneous PVCs but with a poor match with the nonsustained VT morphologies Dual-chamber ICD interrogation within normal limits Base pacing rate increased to 60 beats a minute Plan Increase sotalol Add spironolactone Details [place] dual-chamber ICD interrogated P waves 3.6 mV, pacing impedance 440 ohms R waves 6.2 mV pacing impedance 340 ohms High-voltage impedance 62 ohms Normally functioning dual chamber ICD Noninvasive program stimulation revealed Spontaneous PVCs of different morphologies Nonreproducibe, Inducible but nonsustained monomorphic VT of different morpho logies (Either septal or epicardial morphologies) Minimal resemblance of the QRS, to the spontaneous PVCs No inducible ventricular fibrillation Device reprogrammed with appropriate antitachycardia pacing cardioversion and defibrillation and long detection intervals Base pacing rate change to 60 beats a minute in anticipation of the use of higher sotalol doses in the future Hold off on ablation/EP study for now
[2022-11-18 09:14] VITALS: BP 148/73; PULSE 70
== END 2022-11-18 09:11 | disposition home or self-care (01) ==
LOC: CATHEP 05:38
PROVIDERS: ATTEND Internal Medicine Clinical Cardiac Electrophysiology
DX: I47.20 Ventricular tachycardia, unspecified (principal); I49.3 Ventricular premature depolarization; I45.10 Unspecified right bundle-branch block; I42.8 Other cardiomyopathies; I11.0 Hypertensive heart disease with heart failure; I50.32 Chronic diastolic (congestive) heart failure; I47.1 Supraventricular tachycardia; I48.0 Paroxysmal atrial fibrillation; F17.210 Nicotine dependence, cigarettes, uncomplicated; F12.90 Cannabis use, unspecified, uncomplicated; Z79.01 Long term (current) use of anticoagulants; Z79.899 Other long term (current) drug therapy; Z88.5 Allergy status to narcotic agent
CPT/HCPCS: 80048; 84443; 85025; 93642

== ENCOUNTER → 2023-08-11 | Outpatient (CLI) | payer MEDICARE ==
[2023-08-11 17:28] LABS: ALT 17 U/L (10-49); AST 18 U/L (14-35); Albumin 4.1 g/dL (3.8-4.9); Albumin/Globulin Ratio 1.41 Ratio (1.60-3.17); Alkaline Phosphatase 72 U/L (41-126); Blood Urea Nitrogen 11.7 mg/dL (9.0-27.0); Calcium 9.3 mg/dL (8.7-10.3); Carbon Dioxide 26.9 mmol/L (21.6-31.8); Chloride 106 mmol/L (96-109); Chol/HDL Ratio 2.81 Ratio; Globulin 2.9 g/dL (1.6-3.3); Glucose 108 mg/dL (70-110); LDL Cholesterol,Calculated 66.2 mg/dL (0.0-131.0); Magnesium 2.1 mg/dL (1.5-2.4); Phosphorus 3.5 mg/dL (2.4-5.1); Potassium 4.5 mmol/L (3.5-5.5); Sodium 141 mmol/L (135-145); Total Bilirubin 0.6 mg/dL (0.3-1.2); VLDL Calculation 13.56 mg/dL (5.00-40.00)
[2023-08-11 17:34] LABS: HCT 46.2 % (39.6-50.0); HGB 14.8 g/dL (13.0-17.0); MCH 29.3 pg (27.0-32.0); MCV 91.5 FL (80.0-97.0); NRBC Per 100 WBC 0 X 10*3/uL (0.00-0.01); Platelet Count 302 X 10*3/uL (140-440); RBC 5.05 X 10*6/uL (4.40-5.60); RDW 13.7 % (11.5-14.5); WBC 8.67 X 10*3/uL (4.50-10.00)
== END | disposition home or self-care (01) ==
LOC: LABWHC1 09:01
PROVIDERS: ATTEND Internal Medicine Clinical Cardiac Electrophysiology
DX: I47.10 Supraventricular tachycardia, unspecified (principal)
CPT/HCPCS: 36415; 80053; 80061; 83735; 84100; 84443; 85027

== ENCOUNTER → 2023-10-01 | Outpatient (CLI) | payer MEDICARE ==
[2023-10-01 14:33] LABS: HCT 44.5 % (39.6-50.0); HGB 14.1 g/dL (13.0-17.0); MCH 28.4 pg (27.0-32.0); MCHC 31.7 g/dL (32.0-37.0); MCV 89.7 FL (80.0-97.0); Mean Platelet Volume 11.4 FL (9.5-12.2); NRBC Per 100 WBC 0 X 10*3/uL (0.00-0.01); Platelet Count 327 X 10*3/uL (140-440); RBC 4.96 X 10*6/uL (4.40-5.60); RDW 13.8 % (11.5-14.5)
[2023-10-01 15:08] LABS: Blood Urea Nitrogen 15.3 mg/dL (9.0-27.0); Chloride 106 mmol/L (96-109); Sodium 140 mmol/L (135-145)
== END | disposition home or self-care (01) ==
LOC: LABPAT 08:52
PROVIDERS: ATTEND Internal Medicine Clinical Cardiac Electrophysiology
DX: Z01.812 Encounter for preprocedural laboratory examination (principal); I48.92 Unspecified atrial flutter
CPT/HCPCS: 36415; 80051; 82565; 84520; 85027

== ENCOUNTER 2023-10-09 12:30 | Day surgery (SDC) | payer MEDICARE ==
[2023-10-07 15:42] VITALS: BMI 31.6
[2023-10-09] MEDS: SODIUM CHLORIDE 0.9% 1,000 ML IV ONE (12:40)
[2023-10-09 13:11] VITALS: RESP 16
[2023-10-09] MEDS ORDERED: GLYCOPYRROLATE 0.2 MG/ML 2 ML VIAL ONE (15:09)
[2023-10-09] MEDS ORDERED: SUCCINYLCHOLINE CHLORIDE 200 MG/10 ML VIAL IV ONE (15:09)
[2023-10-09] MEDS ORDERED: ePHEDrine 50 MG/ML 1 ML VIAL ONE (15:09)
[2023-10-09] MEDS ORDERED: MIDAZOLAM 2 MG/2 ML VIAL ONE (15:09)
[2023-10-09] MEDS ORDERED: PROPOFOL 10 MG/ML 20 ML VIAL IV ONE (15:09)
[2023-10-09] MEDS ORDERED: PHENYLEPHRINE 10 MG/ML VIAL ONE (15:09)
[2023-10-09] MEDS ORDERED: NEOSTIGMINE 1 MG/ML 10 ML VIAL ONE (15:09)
[2023-10-09] MEDS ORDERED: FUROSEMIDE 10 MG/ML 2 ML VIAL ONE (15:09)
[2023-10-09] MEDS ORDERED: fentaNYL (PF) 50 MCG/ML 2 ML AMP ONE (15:09)
[2023-10-09] MEDS ORDERED: WATER FOR INJECTION, STERILE 10 ML VIAL IV ONE (15:09)
[2023-10-09] MEDS ORDERED: ROCURONIUM 10 MG/ML (5 ML VIAL) IV ONE (15:09)
[2023-10-09] MEDS ORDERED: LIDOCAINE 1% INJ 10MG/ML (20 ML MDV) ONE (15:35)
[2023-10-09] MEDS: LIDOCAINE 1% INJ 10MG/ML (20 ML MDV) SQ ONE (15:54)
[2023-10-09] MEDS: HEPARIN SODIUM (1,000 UNIT/ML) 1,000 UNIT in SODIUM CHLORIDE 0.9% 1,000 ML IRRIGATION ONE (16:10)
[2023-10-09] MEDS: IOPAMIDOL-370 100ML BTL INJ ONE (17:40)
[2023-10-09] MEDS ORDERED: FUROSEMIDE 20 MG TAB PO PRN (17:42)
--- NOTE | 2023-10-09 17:47 | P.PRLE ---
RE: AlejandraNeil E Date Tong Neil underwent successful atrial flutter ablation with demonstration of complete bidirectional block As you know he is a dual-chamber ICD implanted for exercise-induced polymorphic VT. He has an underlying sick sinus syndrome but during atrial flutter his RV pacing percentage was almost 48% Now that he is in sinus rhythm we will watch his RV pacing percentage and watch him for development of any atrial fibrillation He was quite symptomatic from atrial flutter I would anticipate that atrial fibrillation will result in similar symptoms In addition if his RV pacing percentage remains high during sinus rhythm I will recommend an upgrade to a STRAIGHTENING ROLL OPERATOR device He will continue his heart failure medications and anticoagulation unchanged Thank you for entrusting me with the care of the patient Warm regards Sincerely Eliel Thompson
--- NOTE | 2023-10-09 17:51 | P.HPCAR ---
History of Present Illness This is Dr. Thompson dictating an H/P on this patient The patient was interviewed and examined IMPRESSION / ASSESSMENT: Persistent symptomatic atrial fibrillation shortness of breath and heart failure symptoms Paroxysmal atrial fibrillation High RV pacing percentage greater than 40% during atrial arrhythmias Normal TSH History of exercise-induced polymorphic VT History of cardiomyopathy with normal coronary arteries in 2018 PLAN: Atrial flutter ablation Watch for high RV pacing percentage in the future Watch for paroxysmal atrial fibrillation Continue anticoagulation other cardiomyopathy medications HPI Patient's main symptoms include tiredness fatigue and shortness of breath. He has been constantly in atrial flutter and is symptomatic despite an adequate rate control His RV pacing percentage was also high during atrial flutter Denies any chest discomfort or syncope or ICD shocks recently ROS: No fever chills or rigors, no cough, phlegm or expectoration, no nausea, vomiting or diarrhea, no hematuria, dysuria, no musculoskeletal complaints, no strokes or seizures, no skin lesions. EXAMINATION: Blood pressure 134/77 mmHg pulse rate of 107 beats a minute afebrile No JVD No lower extremity edema Abdomen is soft Lungs are clear no rhonchi no crackles Heart sounds S1-S2 irregular but normal no murmurs REVIEW OF LABS, ECG & MEDICAL DATA Sodium 140, potassium 5.0 BUN 15 and creatinine 0.9 Magnesium 2.1 Normal liver function LDL 66, HDL 44 TSH normal at 2.6 Physical Exam Vitals: Vital Signs Temp Pulse Resp BP Pulse Ox 10/09/23 12:49 97.8 F 107 H 16 134/77 99 Intake and Output 10/09/23 10/09/23 10/09/23 06:59 14:59 22:59 Intake Total 900 425 Balance 900 425 Intake: IV 900 425 Other: Weight 109.3 kg Past Medical History Past Medical History: Atrial Flutter, Hypertension, Pneumonia Additional Past Medical History / Comment(s): see H&P per Dr Thompson History of Any Multi-Drug Resistant Organisms: None Reported Past Surgical History: AICD, Orthopedic Surgery, Tonsillectomy Additional Past Surgical History / Comment(s): Left hand surgery, left ankle surgery with plate. dual chamber ICD/pacemaker 2018 Past Anesthesia/Blood Transfusion Reactions: No Reported Reaction Additional Past Anesthesia/Blood Transfusion Reaction / Comment(s): no hx blood transfusion Type of Cardiac Device: Permanent Pacemaker, AICD Device Placement Date:: [facility] 2019 left chest Smoking Status: Former smoker - Past Family History Mother Family Medical History: No Reported History Physical Examination Vital Signs Temp Pulse Resp BP Pulse Ox 10/09/23 12:49 97.8 F 107 H 16 134/77 99 Intake and Output 10/09/23 10/09/23 10/09/23 06:59 14:59 22:59 Intake Total 900 425 Balance 900 425 Intake: IV 900 425 Other: Weight 109.3 kg Results Current Medications Generic Name Dose Route Start Last Admin Trade Name Freq PRN Reason Stop Dose Admin Apixaban 5 mg 10/09/23 21:00 Apixaban 5 Mg Tab PO BID SHANICE Protocol Furosemide 20 mg 10/09/23 17:42 Furosemide 20 Mg Tab PO DAILY PRN Edema Sodium Chloride 1,000 mls @ 20 mls/hr 10/09/23 06:07 Saline 0.9% IV 11/08/23 06:08 .Q24H SHANICE Metoprolol Succinate 50 mg 10/09/23 21:00 Metoprolol Succinate (Er) 50 Mg Tab.Er.24h PO HS SHANICE Metoprolol Succinate 100 mg 10/10/23 09:00 Metoprolol Succinate (Er) 100 Mg Tab.Er.24h PO QAM SHANICE Sacubitril/Valsartan 1 each 10/09/23 21:00 Sacubitril/Valsartan 49 Mg-51 Mg Tablet PO BID SHANICE Sotalol HCl 80 mg 10/09/23 21:00 Sotalol 80 Mg Tab PO BID SHANICE Spironolactone 12.5 mg 10/10/23 09:00 Spironolactone 25 Mg Tab PO DAILY SHANICE Intake and Output 10/09/23 10/09/23 10/09/23 06:59 14:59 22:59 Intake Total 900 425 Balance 900 425 Intake: IV 900 425 Other: Weight 109.3 kg Patient Weight 10/10/23 06:59 Weight 109.3 kg
--- NOTE | 2023-10-09 17:56 | P.EPPROC ---
- EP Procedure Note Electrophysiology Procedure Note: Diagnosis Symptomatic atrial flutter Underlying cardiomyopathy with exercise-induced polymorphic VT status post dual- chamber ICD, [facility] History of atrial fibrillation High RV pacing percentage during atrial arrhythmias Dual-chamber ICD, [place] Prolonged MT interval at baseline, normal QT interval of 431 ms on sotalol Result Successful ablation for typical atrial flutter with confirmed bidirectional block with isthmus conduction time greater than 200 ms Patent left upper extremity vein, axillary and subclavian Details Patient was brought to the EP lab in a fasting state. Written informed consent was obtained prior to the procedure. IV antibiotics administered. Patient was intubated and paralyzed. [facility] ICD was interrogated and reprogrammed. ICD therapies were turned off rate responsiveness was turned off Venous sheaths were placed in the right femoral veins and the left femoral veins and diagnostic catheters were positioned in the right atrium His bundle area coronary sinus and right ventricle Intracardiac echo catheter was placed He had a very long cavotricuspid isthmus The cavotricuspid isthmus was mapped anatomically. The ICD lead was tagged anatomically The patient was in typical atrial flutter. Tachycardia cycle length 275 ms this was confirmed with entrainment mapping with concealed entrainment from the cavotricuspid isthmus RF ablation was performed at 40 W for 20 seconds at each site. Termination of arrhythmia occurred Following that a complete line of block was made Was then interrogated for any areas of slow conduction. None performed Isthmus conduction time greater than 200 ms in both directions Demonstrated bidirectional block with differential pacing In sinus rhythm sinus cycle length 1060 ms, MT interval 243 ms QRS 104 ms and QT 431 ms AH 103 and HV interval 46 ms Patient tolerated procedure well without any acute complications. Venous sheaths were closed with Perclose ICD therapies were turned back on Left upper extremity venogram was performed. 10 cc IV dye injected Patent left subclavian vein noted
[2023-10-09] MEDS: LACTATED RINGERS 1,000 ML IV ONE (18:26)
[2023-10-09] MEDS: SODIUM CHLORIDE 0.9% 1,000 ML IV SCH (19:01)
[2023-10-09] MEDS: SOTALOL 80 MG TAB PO SCH (20:26)
[2023-10-09] MEDS: SACUBITRIL/VALSARTAN 49 MG-51 MG TABLET PO SCH (20:26)
[2023-10-09] MEDS: METOPROLOL SUCCINATE (ER) 50 MG TAB.ER.24H PO SCH (20:26)
[2023-10-09] MEDS: APIXABAN 5 MG TAB PO SCH (20:26)
[2023-10-10] MEDS: METOPROLOL SUCCINATE (ER) 100 MG TAB.ER.24H PO SCH (09:04)
[2023-10-10] MEDS: SPIRONOLACTONE 25 MG TAB PO SCH (09:04)
[2023-10-10 09:22] LABS: BUN/Creat Ratio 12.89 Ratio (12.00-20.00); Blood Urea Nitrogen 11.6 mg/dL (9.0-27.0); Calcium 8.6 mg/dL (8.7-10.3); Carbon Dioxide 24.7 mmol/L (21.6-31.8); Chloride 104 mmol/L (96-109); Glucose 83 mg/dL (70-110); Sodium 139 mmol/L (135-145)
--- NOTE | 2023-10-10 09:46 | P.DS ---
Providers Date of admission: 10/09/23 Attending physician: Eliel Thompson Primary care physician: Tong Sexton [facility] Course: The patient is a 67-year-old male who follows in the office with Dr. Thompson. The patient underwent atrial flutter ablation, at the cavotricuspid isthmus. Successful ablation with bidirectional block and differential pacing. Patient tolerated the procedure well and states he has done well overnight. He has been up ambulating to the bathroom without any complications. Mild discomfort in his groins. No chest pain or chest pressure. He states his breathing has improved. GENERAL: Well-appearing, well-nourished and in no acute distress. NECK: Supple without JVD or thyromegaly. LUNGS: Breath sounds clear to auscultation bilaterally. Respiration equal and unlabored. No wheezes, rales or rhonchi. HEART: Regular rate and rhythm without murmurs, rubs or gallops. S1 and S2 heard. EXTREMITIES: Normal range of motion, no edema. No clubbing or cyanosis. Peripheral pulses intact and strong. Procedure sites are clean dry and intact. No drainage or hematoma. TELEMETRY: Paced rhythm with PVCs IMPRESSION: Persistent symptomatic atrial flutter Paroxysmal atrial fibrillation High RV pacing percentage during times of atrial arrhythmias History of exercise-induced polymorphic VT, status post AICD History of dilated cardiomyopathy PLAN: Patient to undergo device interrogation by [facility] Outpatient monitoring for atrial arrhythmias and increased RV pacing percentage Consideration for biventricular upgrade thereafter Patient may be discharged after device interrogation for outpatient follow-up with Dr. Thompson in 1 week I am dictating on behalf of Dr Eliel Thompson's history/physical and assessment/plan. Plan - Discharge Summary Discharge Rx Participant: No New Discharge Prescriptions: No Action Multivitamin [Men's Multi-Vitamin] 1 each PO DAILY Metoprolol Succinate [Toprol XL] 100 mg PO QAM Furosemide [Lasix] 20 mg PO DAILY PRN PRN Reason: Edema Sacubitril/Valsartan [Entresto 49 mg-51 mg Tablet] 1 tab PO BID Apixaban [Eliquis] 5 mg PO BID Sotalol [Betapace] 80 mg PO BID #180 tablet Spironolactone 12.5 mg PO DAILY #50 tablet Metoprolol Succinate (ER) [Toprol Xl] 50 mg PO HS Discharge Medication List Multivitamin [Men's Multi-Vitamin] 1 each PO DAILY 05/09/17 [History] Apixaban [Eliquis] 5 mg PO BID 11/11/22 [History] Furosemide [Lasix] 20 mg PO DAILY PRN 11/11/22 [History] Metoprolol Succinate [Toprol XL] 100 mg PO QAM 11/11/22 [History] Sacubitril/Valsartan [Entresto 49 mg-51 mg Tablet] 1 tab PO BID 11/11/22 [History] Sotalol [Betapace] 80 mg PO BID #180 tablet 11/18/22 [Rx] Spironolactone 12.5 mg PO DAILY #50 tablet 11/18/22 [Rx] Metoprolol Succinate (ER) [Toprol Xl] 50 mg PO HS 10/07/23 [History]
[2023-10-10 15:57] VITALS: BP 122/76; PULSE 52; TEMP 98.4
== END 2023-10-10 16:00 | disposition home or self-care (01) ==
LOC: CATHEP 12:30 → 6NMEDSUR 17:32 → CATHEP 10-10 16:00
PROVIDERS: ATTEND Internal Medicine Clinical Cardiac Electrophysiology
DX: I48.92 Unspecified atrial flutter (principal); I48.0 Paroxysmal atrial fibrillation; I49.3 Ventricular premature depolarization; I47.29 Other ventricular tachycardia; I42.0 Dilated cardiomyopathy; I11.0 Hypertensive heart disease with heart failure; I50.9 Heart failure, unspecified; Z79.01 Long term (current) use of anticoagulants; Z79.899 Other long term (current) drug therapy; Z87.891 Personal history of nicotine dependence
CPT/HCPCS: 93662; 36005; 93653; 86900; 86901; 80048; 83735; 86850; C1759; C1894; C1769; C1766; C1730; C1732; J0690; J2001; J1644; Q9967

== ENCOUNTER → 2024-07-07 | Outpatient (CLI) | payer MEDICARE ==
[2024-07-07 10:50] LABS: Blood Urea Nitrogen 20.2 mg/dL (9.0-27.0); Carbon Dioxide 26.1 mmol/L (21.6-31.8); Chloride 106 mmol/L (96-109); Potassium 4.4 mmol/L (3.5-5.5); Sodium 142 mmol/L (135-145)
[2024-07-07 10:53] LABS: Basophils # (A) 0.07 X 10*3/uL (0.00-0.10); Eosinophils # (A) 0.29 X 10*3/uL (0.04-0.35); Eosinophils % (A) 4.3 %; HCT 43.4 % (39.6-50.0); HGB 13.5 g/dL (13.0-17.0); Lymphocytes # (A) 1.22 X 10*3/uL (0.90-5.00); Lymphocytes % (A) 18.2 %; MCH 26.2 pg (27.0-32.0); MCHC 31.1 g/dL (32.0-37.0); MCV 84.1 FL (80.0-97.0); Mean Platelet Volume 12.9 FL (9.5-12.2); Monocytes # (A) 0.45 X 10*3/uL (0.20-1.00); Monocytes % (A) 6.7 %; NRBC Per 100 WBC 0 X 10*3/uL (0.00-0.01); Neutrophils # (A) 4.67 X 10*3/uL (1.80-7.70); Neutrophils % (A) 69.5 %; Platelet Count 271 X 10*3/uL (140-440); RBC 5.16 X 10*6/uL (4.40-5.60); RDW 14.8 % (11.5-14.5); WBC 6.72 X 10*3/uL (4.50-10.00)
== END | disposition home or self-care (01) ==
LOC: LABPAT 07:51
PROVIDERS: ATTEND Internal Medicine Clinical Cardiac Electrophysiology
DX: Z01.812 Encounter for preprocedural laboratory examination (principal); I48.0 Paroxysmal atrial fibrillation
CPT/HCPCS: 80051; 82565; 84520; 85025

== ENCOUNTER 2024-07-19 08:06 | Day surgery (SDC) | payer MEDICARE ==
[2024-07-15 10:03] VITALS: BMI 31.6
[2024-07-19] MEDS: IV FLUID CONTINUATION 1,000 ML IV ONE (08:35)
[2024-07-19] MEDS: SODIUM CHLORIDE 0.9% 1,000 ML IV SCH (08:38)
[2024-07-19] MEDS ORDERED: MIDAZOLAM 2 MG/2 ML VIAL ONE (09:09)
[2024-07-19] MEDS ORDERED: HYDROmorphone (PF) 1 MG/ML ONE (09:09)
[2024-07-19] MEDS ORDERED: LIDOCAINE 1% INJ 10MG/ML (20 ML MDV) ONE (09:09)
[2024-07-19] MEDS ORDERED: HEPARIN SODIUM,PORCINE 10,000 UNIT/ML 1 ML VIAL ONE (09:09)
[2024-07-19] MEDS ORDERED: PROPOFOL 10 MG/ML 20 ML VIAL IV ONE (09:09)
[2024-07-19] MEDS ORDERED: fentaNYL (PF) 50 MCG/ML 2 ML AMP ONE (09:09)
[2024-07-19] MEDS ORDERED: PHENYLEPHRINE 10 MG/ML VIAL ONE (09:09)
[2024-07-19] MEDS ORDERED: SUCCINYLCHOLINE CHLORIDE 200 MG/10 ML VIAL IV ONE (09:09)
--- NOTE | 2024-07-19 09:33 | P.HPCAR ---
History of Present Illness This is Dr. Thompson dictating an H/P on this patient The patient was interviewed and examined IMPRESSION / ASSESSMENT: Recurrent paroxysmal atrial fibrillation, symptomatic now on Eliquis Underlying nonischemic cardiomyopathy with class II CHF Dual-chamber ICD in situ PLAN: A-fib ablation with PVI Continue anticoagulation Heparin dose calculated HPI Paroxysmal atrial fibrillation with long episodes up to 12 hours Currently now on Eliquis Dual-chamber ICD Nonischemic cardiomyopathy with abnormal cardiac MRI Class II CHF shortness of breath on exertion History of exercise-induced polymorphic VT Right bundle branch block pattern ROS: No fever chills or rigors, no cough, phlegm or expectoration, no nausea, vomiting or diarrhea, no hematuria, dysuria, no musculoskeletal complaints, no strokes or seizures, no skin lesions. EXAMINATION: Blood pressure 132/73 mmHg pulse rate in the 60s afebrile Breath sounds are clear no rhonchi no crackles Heart sounds S1-S2 are soft and regular ICD site is healed well No lower extremity edema No JVD REVIEW OF LABS, ECG & MEDICAL DATA Recent labs show normal electrolytes Creatinine 1.1 AST and ALT are normal TSH 2.6 Physical Exam Vitals: Vital Signs Temp Pulse Resp BP Pulse Ox 07/19/24 08:22 97.7 F 66 16 132/73 96 Intake and Output 07/18/24 07/19/24 07/19/24 22:59 06:59 14:59 Intake Total 50 Balance 50 Intake: IV 50 Other: Weight 108.9 kg Past Medical History Past Medical History: Atrial Fibrillation, Hypertension Additional Past Medical History / Comment(s): hx pneumonia, see H&P per Dr. Thompson History of Any Multi-Drug Resistant Organisms: None Reported Past Surgical History: AICD, Orthopedic Surgery, Tonsillectomy Additional Past Surgical History / Comment(s): L hand surgery, L ankle surgery with plate. Dual chamber ICD/pacemaker 2018, Afib ablation 2023 Past Anesthesia/Blood Transfusion Reactions: No Reported Reaction Additional Past Anesthesia/Blood Transfusion Reaction / Comment(s): No hx of blood tranfusion Type of Cardiac Device: AICD Device Placement Date:: [facility] 2018 Smoking Status: Former smoker - Past Family History Mother Family Medical History: No Reported History Physical Examination Vital Signs Temp Pulse Resp BP Pulse Ox 07/19/24 08:22 97.7 F 66 16 132/73 96 Intake and Output 07/18/24 07/19/24 07/19/24 22:59 06:59 14:59 Intake Total 50 Balance 50 Intake: IV 50 Other: Weight 108.9 kg Results Current Medications Generic Name Dose Route Start Last Admin Trade Name Freq PRN Reason Stop Dose Admin Sodium Chloride 1,000 mls @ 20 mls/hr 07/19/24 05:55 07/19/24 08:38 Saline 0.9% IV 08/18/24 05:54 20 mls/hr .Q24H SHANICE Administration Intake and Output 07/18/24 07/19/24 07/19/24 22:59 06:59 14:59 Intake Total 50 Balance 50 Intake: IV 50 Other: Weight 108.9 kg Patient Weight 07/20/24 06:59 Weight 108.9 kg
[2024-07-19] MEDS: LIDOCAINE 1% INJ 10MG/ML (20 ML MDV) SQ ONE (09:45)
[2024-07-19] MEDS: ROPIVACAINE 5 MG/ML 30 ML VIAL MISCELLANE ONE (09:45)
[2024-07-19] MEDS: IOPAMIDOL-370 100ML BTL INJ ONE (11:31)
[2024-07-19] MEDS ORDERED: ACETAMINOPHEN TAB 325 MG TAB PO PRN (11:54)
[2024-07-19] MEDS: ACETAMINOPHEN IV (For NPO) 1,000 MG in EMPTY BAG 1 BAG IVPB ONE (14:44)
--- NOTE | 2024-07-19 17:06 | P.EPPROC ---
- EP Procedure Note Electrophysiology Procedure Note: PROCEDURE A. fib ablation with pulm vein isolation at the antral level and left atrial septal ablation DIAGNOSIS Paroxysmal atrial fibrillation, symptomatic, refractory to therapy. However patient was in atrial fibrillation today RESULT No left atrial appendage mass seen on intracardiac echo Successful A. fib ablation/pulmonary vein isolation of all veins using cryo- ablation Complete entrance block in all 4 veins confirmed Brief, transient phrenic nerve paresis with rapid and complete recovery, when ablating the inferior branch of the right superior pulmonary vein Esophageal deflection YES Electrical cardioversion with a synchronized shock across the chest YES PROCEDURE DETAILS Written informed consent prior to procedure. Patient brought to the EP lab. General anesthesia given. Heparin administered. A city maintained above 300 seconds Both groins prepped and draped per protocol and venous sheaths placed. Esophagus intubated, circa catheter for temperature monitoring an endoscope for possible esophageal deflection. Phrenic nerve monitoring performed. Esophageal temperature monitoring performed. Esophageal deflection performed if circa catheter overlapping with the balloon or circa temperature less than 27.5C Intracardiac echocardiography performed. Pericardium evaluated. Left atrial appendage evaluated. Left atrium evaluated along with pulmonary veins Transseptal catheterization performed under fluoroscopic guidance and intracardiac echo guidance Cryoablation sheath exchanged, balloon catheter along with achieve catheter placed in the left atrium. Pulmonary veins isolated in the following sequence: Left superior pulmonary vein followed by left inferior pulmonary vein, followed by right inferior pulmonary vein and lastly right superior pulmonary vein. Phrenic nerve stimulation along with capture thresholds within the SVC and right superior pulmonary vein to identify the phrenic nerve proximity to the cryo- balloon. Pulmonary veins isolated and confirmed with entrance and exit block. Phrenic nerve integrity confirmed at the end of the procedure Ablation of the left atrial septum performed with cannulation of the superior branch of the right inferior or the inferior branch of the right superior vein to achieve ablation of the posterior septum of the left atrium. Ablation of electrograms confirmed Electrical cardioversion performed for persistence of atrial fibrillation despite successful ablation. Diagnostic catheters for the high right atrium, His bundle, coronary sinus placed. LA and RA pressures recorded LA pressure: 16/0/7 mmHg Diagnostic EP study with coronary sinus pacing and recording Baseline measurements: Post cardioversion QRS interval 84 ms, MO interval 316 ms, QT 485 ms and sinus cycle length 997 ms Venous sheaths were removed and hemostasis assured with a closure device. Patient extubated and transferred to recovery Increase procedural time Multiple ablations performed for the left-sided veins. Successful isolation of the left superior and left inferior pulmonary vein, but there was a wide zulema between the 2 and therefore an additional lesion was applied around the ostium and antrum of the uppermost tributary of the left inferior pulmonary vein. Similar situation was encountered in the right sided veins. Both right-sided veins were quite large. Multiple tributaries were noted in the right inferior pulmonary vein and therefore to achieve antral isolation multiple short ablations were performed, while cannulating each tributary There was a wide zulema between the right superior and right inferior and therefore the lower branch of the right superior and the uppermost branch of the right inferior veins were ablated to allow for left atrial septal ablation. In addition there is a right middle vein which was also ablated resulting in complete ablation in the region of the posterior septum PROCEDURES PERFORMED Diagnostic EP study CS pacing and recording Left and right transseptal catheterization Catheter the mapping of the tachycardia Intracardiac echocardiography Pulmonary vein isolation with transseptal and comprehensive EPS, [id number] Extended procedure duration Linear ablation, left atrium, [id number] Electrical cardioversion with a synchronized shock across the chest [id number] Dual-chamber ICD interrogation reprogramming
[2024-07-19] MEDS: SACUBITRIL/VALSARTAN 49 MG-51 MG TABLET PO SCH (20:05)
[2024-07-19] MEDS: METOPROLOL SUCCINATE (ER) 100 MG TAB.ER.24H PO SCH (20:05)
[2024-07-19] MEDS: APIXABAN 5 MG TAB PO SCH (20:05)
[2024-07-20 04:18] VITALS: PULSE 51; RESP 16
[2024-07-20 08:35] VITALS: BP 114/70; TEMP 97.7
[2024-07-20] MEDS: MULTIVITAMINS, THERA 1 EACH TAB PO SCH (08:40)
--- NOTE | 2024-07-20 18:02 | P.DS ---
Providers Attending physician: Eliel Thompson Primary care physician: Tong Sexton [facility] Course: Patient is doing well. His groins have healed well Denies any chest discomfort dizziness or lightheadedness Mild sore throat On examination Blood pressure 111/70 mmHg pulse rate in the 50s afebrile Heart sounds S1-S2 normal Breath sounds are clear Groins of healed well no hematoma Impression Paroxysmal atrial fibrillation with an A-fib burden of around 10 to 15% Frequent nonsustained VT Cardiomyopathy status post dual-chamber ICD ICD is functioning normally post ablation. This was interrogated Atrial pacing threshold 0.8 V at 0.5 ms, P waves 2.5 mV and pace impedance 400 ohms RV threshold 0.8 V at 0.5 ms, R waves equals 11 mV and pacing patient 340 ohms High-voltage impedance 61 ohms Plan Uninterrupted anticoagulation for 2 months Continue long-term anticoagulation thereafter Continue other heart failure medications unchanged Discharge home today and follow-up with Dr. Thompson in 1 week Plan - Discharge Summary Discharge Rx Participant: No New Discharge Prescriptions: No Action Multivitamin [Men's Multi-Vitamin] 1 each PO DAILY Metoprolol Succinate [Toprol XL] 100 mg PO BID Furosemide [Lasix] 20 mg PO DAILY PRN PRN Reason: Edema Ascorbic Acid [Vitamin C chew] 500 mg PO QAM Sacubitril/Valsartan [Entresto 49 mg-51 mg Tablet] 1 tab PO BID Apixaban [Eliquis] 5 mg PO BID Discharge Medication List Multivitamin [Men's Multi-Vitamin] 1 each PO DAILY 05/09/17 [History] Apixaban [Eliquis] 5 mg PO BID 11/11/22 [History] Furosemide [Lasix] 20 mg PO DAILY PRN 11/11/22 [History] Metoprolol Succinate [Toprol XL] 100 mg PO BID 11/11/22 [History] Sacubitril/Valsartan [Entresto 49 mg-51 mg Tablet] 1 tab PO BID 11/11/22 [History] Ascorbic Acid [Vitamin C chew] 500 mg PO QAM 07/15/24 [History] Follow up Appointment(s)/Referral(s): Eliel Thompson MD [STAFF PHYSICIAN] - 1 Week Activity/Diet/Wound Care/Special Instructions: Post EP study - Ablation instructions 1. Keep access sites dry for 2 days. 2. No heavy lifting or straining for 2 days. 3. Avoid bending the hips repeatedly for 2 days. 4. You may go up and down stairs slowly 5. If you have had an ablation for atrial fibrillation or atrial flutter and are on a blood thinner, do not stop the blood thinner even temporarily for 3 months post ablation Call if the following is noted 1. Bleeding, increasing swelling or pain at the access sites. 2. Increasing chest discomfort, especially upon taking a deep breath. 3. Increasing shortness of breath, at rest or with exertion. 4. Undue cough / phlegm 5. Difficulty or pain while swallowing. 6. Pain or change in color in the extremities. 7. Fever, chills, rigors. 8. Increasing headache or neurologic symptoms. 9. Dizziness, fainting, palpitations For patients who have undergone an A-fib ablation /atrial flutter ablation Strict instruction; do NOT stop anticoagulation (Eliquis/Xarelto/Pradaxa) for the next 2 months temporarily, for any elective, nonurgent surgery. This increases the risk of stroke, post A-fib ablation Discharge Disposition: HOME SELF-CARE
== END 2024-07-20 12:05 | disposition home or self-care (01) ==
LOC: CATHEP 08:06 → 6NMEDSUR 11:33 → CATHEP 07-20 12:05
PROVIDERS: ATTEND Internal Medicine Clinical Cardiac Electrophysiology
DX: I48.0 Paroxysmal atrial fibrillation (principal); I11.0 Hypertensive heart disease with heart failure; I50.9 Heart failure, unspecified; I42.8 Other cardiomyopathies; I47.29 Other ventricular tachycardia; I45.10 Unspecified right bundle-branch block; Z79.01 Long term (current) use of anticoagulants; Z79.899 Other long term (current) drug therapy; Z87.891 Personal history of nicotine dependence; Z95.810 Presence of automatic (implantable) cardiac defibrillator
CPT/HCPCS: 93005; 92960; 93656; 93657; 86900; 86901; 84443; 86850; C1894; C1769; C1760 ×2; C1730 ×2; C1759; C1733; C1766; J2250; J0330; J1644; J0690; J2003; J3010; J1171; J2795; J2704; Q9967; J2371

== ENCOUNTER 2024-08-21 17:40 | Inpatient (IN) | payer MEDICARE ==
--- NOTE | 2024-08-21 18:06 | ED ---
General Adult HPI - General Chief complaint: Weakness Stated complaint: pacemaker "going off" Time Seen by Provider: 08/21/24 17:47 Source: patient Mode of arrival: ambulatory Limitations: no limitations - History of Present Illness Initial comments: Dictation was produced using [employer] dictation software. please excuse any grammatical, word or spelling errors. Chief Complaint: 68-year-old male with palpitations and sensation of pacemaker clicking History of Present Illness: Patient 68-year-old male who states that he has history of pacemaker. States that he also has defibrillator. For last 24 hours she has noticed palpitations followed by clicking sensation from his defibrillator. States he was recently prescribed amiodarone however states that he has been having side effect so he stopped it on his own. Denies any pain complaints. Denies lightheadedness. The ROS documented in this emergency department record has been reviewed and co nfirmed by me. Those systems with pertinent positive or negative responses have been documented in the HPI. All other systems are other negative and/or noncontributory. - Related Data Home Medications Medication Instructions Recorded Confirmed Apixaban [Eliquis] 5 mg PO BID 11/11/22 08/21/24 Furosemide [Lasix] 20 mg PO DAILY PRN 11/11/22 08/21/24 Sacubitril/Valsartan [Entresto 49 1 tab PO BID 11/11/22 08/21/24 mg-51 mg Tablet] Metoprolol Succinate [Toprol XL] 200 mg PO BID 08/21/24 08/21/24 Allergies Allergy/AdvReac Type Severity Reaction Status Date / Time meperidine [From Demerol] Allergy Nausea & Verified 08/21/24 18:09 Vomiting Review of Systems ROS Statement: Those systems with pertinent positive or pertinent negative responses have been documented in the HPI. ROS Other: All systems not noted in ROS Statement are negative. Past Medical History Past Medical History: Atrial Fibrillation, Hypertension Additional Past Medical History / Comment(s): hx pneumonia, see H&P per Dr. Thompson History of Any Multi-Drug Resistant Organisms: None Reported Past Surgical History: AICD, Orthopedic Surgery, Tonsillectomy Additional Past Surgical History / Comment(s): L hand surgery, L ankle surgery with plate. Dual chamber ICD/pacemaker 2018, Afib ablation 2023 Past Anesthesia/Blood Transfusion Reactions: No Reported Reaction Additional Past Anesthesia/Blood Transfusion Reaction / Comment(s): No hx of blood tranfusion Type of Cardiac Device: AICD Device Placement Date:: 2018 Past Psychological History: No Psychological Hx Reported Smoking Status: Former smoker - Past Family History Mother Family Medical History: No Reported History General Exam - General Exam Comments Initial Comments: PHYSICAL EXAM: General Impression: Alert and oriented x3, not in acute distress HEENT: Normocephalic atraumatic, extra-ocular movements intact, pupils equal and reactive to light bilaterally, mucous membranes moist. Cardiovascular: Heart regular rate and rhythm Chest: Able to complete full sentences, no retractions, no tachypnea Abdomen: abdomen soft, non-tender, non-distended, no organomegaly Musculoskeletal: Pulses present and equal in all extremities, no peripheral edema Motor: no focal deficits noted Neurological: CN II-XII grossly intact, no focal motor or sensory deficits noted Skin: Intact with no visualized rashes Psych: Normal affect and mood Limitations: no limitations Course Vital Signs 08/21/24 08/21/24 17:43 19:27 Temperature 97.4 F L Pulse Rate 57 L 69 Respiratory 18 18 Rate Blood Pressure 174/109 128/65 O2 Sat by Pulse 98 95 Oximetry EKG Findings - EKG Comments: EKG Findings:: My EKG interpretation: Ventricular rate 77, atrial ventricular dissociation concerning for block. Seems to be similar to EKG from July 19, 2024. Medical Decision Making - Medical Decision Making Was pt. sent in by a medical professional or institution (, PA, BONING ROOM WORKER, urgent care, hospital, or senior living...) When possible be specific @ -No Did you speak to anyone other than the patient for history (EMS, parent, family, police, friend...)? What history was obtained from this source @ -No Did you review nursing and triage notes (agree or disagree)? Why? @ -I reviewed and agree with nursing and triage notes Were old charts reviewed (outside hosp., previous admission, EMS record, old EKG, old radiological studies, urgent care reports/EKG's, senior living records)? Report findings @ -No old charts were reviewed Differential Diagnosis (chest pain, altered mental status, abdominal pain women, abdominal pain men, vaginal bleeding, musculoskeletal, weakness, fever, dyspnea, syncope, headache, dizziness, GI bleed, back pain, seizure, CVA, palpatations, mental health)? @ - Differential Palpitations: Ventricular arrhythmias, atrial arrhythmias, myocardial infarction, anemia, thyrotoxicosis, electrolyte imbalance, hypokalemia, pulmonary embolism, pulmonary disease, drugs, alcohol, anxiety, stress.... This is not meant to be an all-inclusive list. EKG interpreted by me (3pts min.). @ -As above X-rays interpreted by me (1pt min.). @ -Chest x-ray is nonacute CT interpreted by me (1pt min.). @ -None done U/S interpreted by me (1pt. min.). @ -None done What testing was considered but not performed or refused? (CT, X-rays, U/S, labs)? Why? @ -None What meds were considered but not given or refused? Why? @ -None Was smoking cessation discussed for >3mins.? @ -No Were there social determinants of health that impacted care today? How? (Homelessness, low income, unemployed, alcoholism, drug addiction, transportation, low edu. Level, literacy, decrease access to med. care, alf, rehab)? @ -No Was there de-escalation of care discussed even if they declined (Discuss DNR or withdrawal of care, Hospice)? DNR status @ -No What co-morbidities impacted this encounter? (DM, HTN, Smoking, COPD, CAD, Cancer, CVA, ARF, Chemo, Hep., AIDS, mental health diagnosis, sleep apnea, morbid obesity)? @ -Pacemaker Was patient admitted / discharged? Hospital course, mention meds given and route, prescriptions, significant lab abnormalities, going to OR and other pertinent info. @ -68-year-old male presents to the emergency department with palpitations with allegedly pacemaker firing. He describes it as a clicking sensation. EKG appears to be at baseline. Vital signs are stable patient well-appearing. Patient's pacemaker be interrogated will be admitted observation consultation to cardiology. Did you discuss the management of the patient with other professionals (professionals i.e. , PA, BONING ROOM WORKER, lab, RT, psych nurse, social services counselor, radial drill press set up operator, teacher, security flex officer, embedded case manager)? Give summary @ -Discussed with hospitalist for admission Was critical care preformed (if so, how long)? @ -No Undiagnosed new problem with uncertain prognosis? @ -No Drug Therapy requiring intensive monitoring for toxicity (Heparin, Nitro, Insulin, Cardizem)? @ -No Were any procedures done? @ -No Diagnosis/symptom? Acute, or Chronic, or Acute on Chronic? Uncomplicated (without systemic symptoms) or Complicated (systemic symptoms)? @ -Pacemaker malfunction Side effects of treatment? @ -No Exacerbation, Progression, or Severe Exacerbation? @ -No Poses a threat to life or bodily function? How? (Chest pain, USA, MA, pneumonia, PE, COPD, DKA, ARF, appy, cholecystitis, CVA, Diverticulitis, Homicidal, Suicidal, threat to staff... and all critical care pts) @ -yes - Lab Data Result diagrams: 08/21/24 17:30 08/21/24 17:30 Lab Results 08/21/24 08/21/24 08/21/24 Range/Units 17:30 17:30 17:30 WBC 11.78 H (4.50-10.00) 10*3/uL RBC 5.58 (4.40-5.60) 10*6/uL Hgb 14.8 (13.0-17.0) g/dL Hct 45.7 (39.6-50.0) % MCV 81.9 (80.0-97.0) fL MCH 26.5 L (27.0-32.0) pg MCHC 32.4 (32.0-37.0) g/dL Plt Count 287 (140-440) 10*3/uL MPV 11.5 (9.5-12.2) fL Immature Gran % (Auto) 0.2 % Neutrophils % 76.8 % Lymphocytes % 12.6 % Monocytes % 7.5 % Eosinophils % 2.2 % Basophils % 0.7 % Immature Gran # 0.02 (0.00-0.04) 10*3/uL Neutrophils # 9.06 H (1.80-7.70) 10*3/uL Lymphocytes # 1.48 (0.90-5.00) 10*3/uL Monocytes # 0.88 (0.20-1.00) 10*3/uL Eosinophils # 0.26 (0.04-0.35) 10*3/uL Basophils # 0.08 (0.00-0.10) 10*3/uL PT 12.7 H (10.0-12.5) sec INR 1.2 H (<1.2) APTT 27.4 (22.0-30.0) sec Sodium 139 (137-145) mmol/L Potassium 3.9 (3.5-5.1) mmol/L Chloride 103 (98-107) mmol/L Carbon Dioxide 25 (22-30) mmol/L Anion Gap 11 mmol/L BUN 19 (9-20) mg/dL Creatinine 0.94 (0.66-1.25) mg/dL Est GFR (CKD-EPI)AfAm >90 (>60 ml/min/1.73 sqM) Est GFR (CKD-EPI)NonAf 84 (>60 ml/min/1.73 sqM) Glucose 108 H (74-99) mg/dL Calcium 9.0 (8.4-10.2) mg/dL Magnesium 2.0 (1.6-2.3) mg/dL Total Bilirubin 0.8 (0.2-1.3) mg/dL AST 34 (17-59) U/L ALT 44 (4-49) U/L Alkaline Phosphatase 66 (38-126) U/L Troponin I (0.000-0.034) ng/mL Total Protein 7.4 (6.3-8.2) g/dL Albumin 4.3 (3.5-5.0) g/dL 08/21/24 Range/Units 17:30 WBC (4.50-10.00) 10*3/uL RBC (4.40-5.60) 10*6/uL Hgb (13.0-17.0) g/dL Hct (39.6-50.0) % MCV (80.0-97.0) fL MCH (27.0-32.0) pg MCHC (32.0-37.0) g/dL Plt Count (140-440) 10*3/uL MPV (9.5-12.2) fL Immature Gran % (Auto) % Neutrophils % % Lymphocytes % % Monocytes % % Eosinophils % % Basophils % % Immature Gran # (0.00-0.04) 10*3/uL Neutrophils # (1.80-7.70) 10*3/uL Lymphocytes # (0.90-5.00) 10*3/uL Monocytes # (0.20-1.00) 10*3/uL Eosinophils # (0.04-0.35) 10*3/uL Basophils # (0.00-0.10) 10*3/uL PT (10.0-12.5) sec INR (<1.2) APTT (22.0-30.0) sec Sodium (137-145) mmol/L Potassium (3.5-5.1) mmol/L Chloride (98-107) mmol/L Carbon Dioxide (22-30) mmol/L Anion Gap mmol/L BUN (9-20) mg/dL Creatinine (0.66-1.25) mg/dL Est GFR (CKD-EPI)AfAm (>60 ml/min/1.73 sqM) Est GFR (CKD-EPI)NonAf (>60 ml/min/1.73 sqM) Glucose (74-99) mg/dL Calcium (8.4-10.2) mg/dL Magnesium (1.6-2.3) mg/dL Total Bilirubin (0.2-1.3) mg/dL AST (17-59) U/L ALT (4-49) U/L Alkaline Phosphatase (38-126) U/L Troponin I <0.012 (0.000-0.034) ng/mL Total Protein (6.3-8.2) g/dL Albumin (3.5-5.0) g/dL Disposition Clinical Impression: Pacemaker complications Disposition: ADMITTED IP TO THIS [facility] Condition: Fair Referrals: Tong Sexton MD [Primary Care Provider] - 1-2 days Decision Time: 19:32
[2024-08-21 18:07] LABS: Basophils # (A) 0.08 10*3/uL (0.00-0.10); Basophils % (A) 0.7 %; Eosinophils # (A) 0.26 10*3/uL (0.04-0.35); Eosinophils % (A) 2.2 %; HCT 45.7 % (39.6-50.0); HGB 14.8 g/dL (13.0-17.0); Lymphocytes # (A) 1.48 10*3/uL (0.90-5.00); Lymphocytes % (A) 12.6 %; MCH 26.5 pg (27.0-32.0); MCHC 32.4 g/dL (32.0-37.0); MCV 81.9 fL (80.0-97.0); Mean Platelet Volume 11.5 fL (9.5-12.2); Monocytes # (A) 0.88 10*3/uL (0.20-1.00); Monocytes % (A) 7.5 %; Neutrophils # (A) 9.06 10*3/uL (1.80-7.70); Neutrophils % (A) 76.8 %; Platelet Count 287 10*3/uL (140-440); RBC 5.58 10*6/uL (4.40-5.60); RDW 15.8 % (11.5-14.5); WBC 11.78 10*3/uL (4.50-10.00)
[2024-08-21 18:17] LABS: INR 1.2 (<1.2); Partial Thromboplastin Time 27.4 sec (22.0-30.0); Prothrombin Time 12.7 sec (10.0-12.5)
[2024-08-21 18:23] LABS: ALT 44 U/L (4-49); AST 34 U/L (17-59); African American GFR (CKD) >90 (>60 ml/min/1.73 sqM); Albumin 4.3 g/dL (3.5-5.0); Alkaline Phosphatase 66 U/L (38-126); Anion Gap 11 mmol/L; Blood Urea Nitrogen 19 mg/dL (9-20); Carbon Dioxide 25 mmol/L (22-30); Chloride 103 mmol/L (98-107); Glucose 108 mg/dL (74-99); Non-African American GFR(CKD) 84 (>60 ml/min/1.73 sqM); Potassium 3.9 mmol/L (3.5-5.1); Sodium 139 mmol/L (137-145); Total Bilirubin 0.8 mg/dL (0.2-1.3); Total Protein 7.4 g/dL (6.3-8.2)
--- NOTE | 2024-08-21 19:09 | XR ---
EXAMINATION TYPE: XR chest 2V DATE OF EXAM: 08/21/2024 7:00 PM COMPARISON: 02/03/2019 CLINICAL INDICATION: Male, 68 years old with history of dysrhythmia, TECHNIQUE: XR chest 2V view(s) obtained. FINDINGS: The heart size is mildly prominent. The pulmonary vasculature is prominent. There is a small right pleural effusion. IMPRESSION: 1. Clinical correlation for volume overload. 2. Small right pleural effusion [facility], , 08/21/2024 7:07 PM
[2024-08-21] MEDS ORDERED: NALOXONE 0.4 MG/ML 1 ML VIAL IV PRN (19:27)
[2024-08-21] MEDS: DEXTROSE 5% IN WATER 100 ML with AMIODARONE 150 MG IV ONE (22:36)
[2024-08-21] MEDS: AMIODARONE 360 MG in DEXTROSE 5% IN WATER 200 ML IV ONE (22:48)
[2024-08-22] MEDS: SODIUM CHLORIDE 0.9% 1,000 ML IV SCH (00:01)
[2024-08-22] MEDS: METOPROLOL SUCCINATE (ER) 100 MG TAB.ER.24H PO SCH (00:03)
[2024-08-22] MEDS: SACUBITRIL/VALSARTAN 49 MG-51 MG TABLET PO SCH (00:49)
[2024-08-22] MEDS: AMIODARONE 450 MG in DEXTROSE 5% IN WATER 250 ML IV SCH (04:36)
[2024-08-22 07:28] LABS: Basophils # (A) 0.07 10*3/uL (0.00-0.10); Eosinophils # (A) 0.12 10*3/uL (0.04-0.35); Eosinophils % (A) 1.6 %; HGB 13.1 g/dL (13.0-17.0); Lymphocytes # (A) 1.08 10*3/uL (0.90-5.00); Lymphocytes % (A) 14.8 %; MCH 26.1 pg (27.0-32.0); MCV 81.7 fL (80.0-97.0); Mean Platelet Volume 11.3 fL (9.5-12.2); Monocytes # (A) 0.55 10*3/uL (0.20-1.00); Monocytes % (A) 7.5 %; Neutrophils # (A) 5.46 10*3/uL (1.80-7.70); Platelet Count 255 10*3/uL (140-440); RBC 5.02 10*6/uL (4.40-5.60); WBC 7.29 10*3/uL (4.50-10.00)
[2024-08-22 07:47] LABS: African American GFR (CKD) >90 (>60 ml/min/1.73 sqM); Anion Gap 8 mmol/L; Blood Urea Nitrogen 17 mg/dL (9-20); Calcium 8.9 mg/dL (8.4-10.2); Carbon Dioxide 27 mmol/L (22-30); Chloride 103 mmol/L (98-107); Glucose 99 mg/dL (74-99); Non-African American GFR(CKD) 84 (>60 ml/min/1.73 sqM); Potassium 4.1 mmol/L (3.5-5.1); Sodium 138 mmol/L (137-145)
[2024-08-22] MEDS ORDERED: FUROSEMIDE 20 MG TAB PO PRN (09:00)
[2024-08-22] MEDS: APIXABAN 5 MG TAB PO SCH (09:13)
--- NOTE | 2024-08-22 09:51 | P.HPIM ---
History of Present Illness H&P Date: 08/22/24 Chief Complaint: Palpitations/sensation of pacemaker click 68-year-old male, who states that he has history of hypertension, atrial fibrillation and pacemaker. States that he also has defibrillator. For last 24 hours he has noticed palpitations followed by clicking sensation from his defibrillator. States he was recently prescribed amiodarone however states that he has been having side effect so he stopped it on his own. Denies any pain complaints. Denies lightheadedness. Blood work completed in ED reveals a WBC of 11.7, hemoglobin of 14.8 and platelet count of 287, sodium 139, potassium 3.9, BUNs/creatinine of 19/0.94 and blood glucose of 108, troponin less than 0.012 EKG reveals sinus rhythm without any acute ST or T wave changes Chest x-ray is negative for any acute pulmonary process Review of Systems REVIEW OF SYSTEMS: CONSTITUTIONAL: No fever, no malaise, no fatigue. HEENT: No recent visual problems or hearing problems. Denied any sore throat. CARDIOVASCULAR: No chest pain, orthopnea, PND, no palpitations, no syncope. PULMONARY: No shortness of breath, no cough, no hemoptysis. GASTROINTESTINAL: No diarrhea, no nausea, no vomiting, no abdominal pain. NEUROLOGICAL: No headaches, no weakness, no numbness. HEMATOLOGICAL: Denies any bleeding or petechiae. GENITOURINARY: Denies any burning micturition, frequency, or urgency. MUSCULOSKELETAL/RHEUMATOLOGICAL: Denies any joint pain, swelling, or any muscle pain. ENDOCRINE: Denies any polyuria or polydipsia. The rest of the 14-point review of systems is negative. Past Medical History Past Medical History: Atrial Fibrillation, Hypertension Additional Past Medical History / Comment(s): hx pneumonia, see H&P per Dr. Thompson History of Any Multi-Drug Resistant Organisms: None Reported Past Surgical History: AICD, Orthopedic Surgery, Tonsillectomy Additional Past Surgical History / Comment(s): L hand surgery, L ankle surgery with plate. Dual chamber ICD/pacemaker 2018, Afib ablation 2023 Past Anesthesia/Blood Transfusion Reactions: No Reported Reaction Additional Past Anesthesia/Blood Transfusion Reaction / Comment(s): No hx of blood tranfusion Type of Cardiac Device: AICD Device Placement Date:: [facility] 2018 Past Psychological History: No Psychological Hx Reported Smoking Status: Former smoker - Past Family History Mother Family Medical History: No Reported History Medications and Allergies Home Medications Medication Instructions Recorded Confirmed Type Apixaban [Eliquis] 5 mg PO BID 11/11/22 08/21/24 History Furosemide [Lasix] 20 mg PO DAILY PRN 11/11/22 08/21/24 History Sacubitril/Valsartan [Entresto 49 1 tab PO BID 11/11/22 08/21/24 History mg-51 mg Tablet] Metoprolol Succinate [Toprol XL] 200 mg PO BID 08/21/24 08/21/24 History Allergies Allergy/AdvReac Type Severity Reaction Status Date / Time meperidine [From Demerol] Allergy Nausea & Verified 08/21/24 18:09 Vomiting Physical Exam Vitals: Vital Signs Temp Pulse Resp BP Pulse Ox 08/21/24 19:27 69 18 128/65 95 08/21/24 17:43 97.4 F L 57 L 18 174/109 98 Intake and Output 08/21/24 08/21/24 08/21/24 06:59 14:59 22:59 Other: Weight 108.862 kg General Impression: Alert and oriented x3, not in acute distress HEENT: Normocephalic atraumatic, extra-ocular movements intact, pupils equal and reactive to light bilaterally, mucous membranes moist. Cardiovascular: Heart regular rate and rhythm Chest: Able to complete full sentences, no retractions, no tachypnea Abdomen: abdomen soft, non-tender, non-distended, no organomegaly Musculoskeletal: Pulses present and equal in all extremities, no peripheral edema Motor: no focal deficits noted Neurological: CN II-XII grossly intact, no focal motor or sensory deficits noted Skin: Intact with no visualized rashes Psych: Normal affect and mood Results CBC & Chem 7: 08/22/24 07:03 08/22/24 07:03 Labs: Abnormal Lab Results - Last 24 Hours (Table) 08/21/24 08/21/24 08/21/24 Range/Units 17:30 17:30 17:30 WBC 11.78 H (4.50-10.00) 10*3/uL MCH 26.5 L (27.0-32.0) pg Neutrophils # 9.06 H (1.80-7.70) 10*3/uL PT 12.7 H (10.0-12.5) sec INR 1.2 H (<1.2) Glucose 108 H (74-99) mg/dL Assessment and Plan Assessment: 1. Palpitations/pacemaker complication -Plan is to admit patient to telemetry; pacemaker check - Consult cardiology 2. Atrial fibrillation; patient reports he has been placed on amiodarone by primary printing technician however patient stopped taking it on its own because of s alla effects - Patient remains on Eliquis 5 mg twice daily 3. Hypertension; metoprolol 200 mg twice daily; Entresto 49-51 mg twice daily 4. Nonischemic cardiomyopathy/CHF - Patient had dual-chamber ICD in place - Continue with home dose of Lasix - Continue with metoprolol and Entresto 5. History of exercise-induced polymorphic V. tach - Patient reports he took himself off of amiodarone due to side effect DVT prophylaxis; SCD/Eliquis CODE STATUS; full code
--- NOTE | 2024-08-22 12:02 | P.CRDCN ---
History of Present Illness History of present illness: HISTORY OF PRESENT ILLNESS: This is a 68-year-old male with a past medical history significant for nonischemic cardiomyopathy, ventricular tachycardia, atrial fibrillation, atrial flutter, and A-fib ablation on 07/19/2024. Patient follows in the office with Dr. Thompson. We have been asked to see the patient in consultation for palpitations. Patient examined at the bedside. Patient underwent atrial fibrillation ablation on 07/19/2024. At the end of the procedure, the patient remained in atrial fibrillation and underwent cardioversion. Patient was seen back in the office on 07/27/2024. Patient was found to be back in atrial fibrillation. He was placed on amiodarone once a day for 5 days. He states that he called and spoke with the office and told them he had been having palpitations and shortness of breath along with swelling in his ankles. He states his dose was then increased to 800 mg a day. He states that he continued to feel worse and he stopped taking the amiodarone altogether. The patient reports having episodes of palpitations and believes that he was shocked 4 times in a period of 3 to 4 hours by his defibrillator. Patient presented to the ER for further evaluation. Patient was found to have episodes of ventricular tachycardia. Patient was started on IV amiodarone. ICD interrogation this morning revealed episodes of ventricular tachycardia with ATP x 6. No defibrillation noted. Since patient has been on IV amiodarone episodes of VT have resolved. DIAGNOSTICS: - EKG reveals atrial fibrillation with PVCs. Bedside telemetry reveals paced rhythm with underlying atrial fibrillation. - Chest xray clinical correlation for volume overload. Small right pleural effusion. - Laboratory data: WBC 7.29. Hemoglobin 13.1. Platelet count 255. Sodium 138. Potassium 4.1. BUN 17. Creatinine 0.94. Troponin negative x 1 - Current home cardiac medications include Eliquis 5 mg twice a day, Lasix 20 mg daily as needed, metoprolol succinate 200 mg twice a day, Entresto 49-51 mg twice a day - Most recent echocardiogram obtained in the office in July 2024 revealed ejection fraction 45%, mild concentric LVH, severely dilated left atrium, mildly dilated right atrium, mild aortic regurgitation, mild to moderate MR, mild to moderate TR, normal pulmonary artery systolic pressure. - Cardiac catheterization history: 2018 revealing normal coronary arteries REVIEW OF SYSTEMS: At the time of my exam: CONSTITUTIONAL: Denies fever or chills. HEENT: Denies blurred vision, vision changes, or eye pain. Denies hemoptysis CARDIOVASCULAR: Denies chest pain. Denies orthopnea. Denies PND. Denies palpitations RESPIRATORY: Denies shortness of breath. GASTROINTESTINAL: Denies abdominal pain. Denies nausea or vomiting. HEMATOLOGIC: Denies bleeding disorders. GENITOURINARY: Denies any blood in urine. SKIN: Denies pruitis. Denies rash. PHYSICAL EXAM: VITAL SIGNS: Reviewed. GENERAL: Well-developed in no acute distress. HEENT: Head is normocephalic. Pupils are equal, round. Sclerae anicteric. Mucous membranes of the mouth are moist. Neck supple. No JVD or thyromegaly LUNGS: Respirations even and unlabored. Lungs essentially clear to auscultation bilaterally. HEART: Irregular rate and rhythm. S1 and S2 heard. ABDOMEN: Soft. Nondistended. Nontender. EXTREMITIES: Normal range of motion. No clubbing or cyanosis. Peripheral pulses intact. No lower extremity edema NEUROLOGIC: Awake and alert. Oriented x 3. ASSESSMENT: Sustained ventricular tachycardia with ATP treatment x 6, no defibrillation noted on ICD interrogation Paroxysmal atrial fibrillation History of A-fib ablation with pulmonary vein isolation, 07/19/2024 History of nonischemic cardiomyopathy, 45% History of exercise-induced polymorphic VT History of atrial flutter with previous ablation PLAN: Obtain 2D echo to assess cardiac structure and function Resume home cardiac medications Add Aldactone 25 mg daily Add Lasix 20 mg daily Continue IV amiodarone at 0.5 mg/min. Do not discontinue infusion. Continue telemetry monitoring Patient will be evaluated by Dr. Thompson, forming machine upkeep mechanic helper, tomorrow Further recommendations pending patient course Nurse practitioner note has been reviewed by physician. Signing provider agrees with the documented findings, assessment, and plan of care documented by TUGBOAT DISPATCHER as a scribe. Past Medical History Past Medical History: Atrial Fibrillation, Hypertension Additional Past Medical History / Comment(s): hx pneumonia, see H&P per Dr. Thompson History of Any Multi-Drug Resistant Organisms: None Reported Past Surgical History: AICD, Orthopedic Surgery, Tonsillectomy Additional Past Surgical History / Comment(s): L hand surgery, L ankle surgery with plate. Dual chamber ICD/pacemaker 2018, Afib ablation 2023 Past Anesthesia/Blood Transfusion Reactions: No Reported Reaction Additional Past Anesthesia/Blood Transfusion Reaction / Comment(s): No hx of blood tranfusion Type of Cardiac Device: AICD Device Placement Date:: 2018 Past Psychological History: No Psychological Hx Reported Smoking Status: Former smoker - Past Family History Mother Family Medical History: No Reported History Medications and Allergies Home Medications Medication Instructions Recorded Confirmed Type Apixaban [Eliquis] 5 mg PO BID 11/11/22 08/21/24 History Furosemide [Lasix] 20 mg PO DAILY PRN 11/11/22 08/21/24 History Sacubitril/Valsartan [Entresto 49 1 tab PO BID 11/11/22 08/21/24 History mg-51 mg Tablet] Metoprolol Succinate [Toprol XL] 200 mg PO BID 08/21/24 08/21/24 History Allergies Allergy/AdvReac Type Severity Reaction Status Date / Time meperidine [From Demerol] Allergy Nausea & Verified 08/21/24 18:09 Vomiting Physical Exam Vitals: Vital Signs Temp Pulse Pulse Resp BP BP Pulse Ox 08/22/24 08:20 97.5 F L 58 L 16 146/79 96 08/22/24 03:49 97.6 F 60 18 109/72 96 08/22/24 01:19 69 18 08/22/24 00:42 69 18 08/22/24 00:00 98.1 F 58 L 18 104/78 96 08/21/24 23:42 98.1 F 58 L 18 104/78 96 08/21/24 23:15 69 138/79 95 08/21/24 22:55 90 142/88 98 08/21/24 22:45 70 138/81 95 08/21/24 22:28 69 152/76 97 08/21/24 20:44 97.8 F 61 18 133/78 97 08/21/24 19:27 69 18 128/65 95 08/21/24 17:43 97.4 F L 57 L 18 174/109 98 Intake and Output 08/21/24 08/22/24 08/22/24 22:59 06:59 14:59 Intake Total 240 Balance 240 Intake: Oral 240 Other: # Voids 1 0 Weight 108.862 kg 112.7 kg Results 04/13/25 07:03 08/22/24 07:03 Cardiac Enzymes 08/21/24 08/21/24 Range/Units 17:30 17:30 AST 34 (17-59) U/L Troponin I <0.012 (0.000-0.034) ng/mL Coagulation 08/21/24 Range/Units 17:30 PT 12.7 H (10.0-12.5) sec APTT 27.4 (22.0-30.0) sec CBC 08/21/24 08/22/24 Range/Units 17:30 07:03 WBC 11.78 H 7.29 (4.50-10.00) 10*3/uL RBC 5.58 5.02 (4.40-5.60) 10*6/uL Hgb 14.8 13.1 (13.0-17.0) g/dL Hct 45.7 41.0 (39.6-50.0) % Plt Count 287 255 (140-440) 10*3/uL Comprehensive Metabolic Panel 08/21/24 08/22/24 Range/Units 17:30 07:03 Sodium 139 138 (137-145) mmol/L Potassium 3.9 4.1 (3.5-5.1) mmol/L Chloride 103 103 (98-107) mmol/L Carbon Dioxide 25 27 (22-30) mmol/L BUN 19 17 (9-20) mg/dL Creatinine 0.94 0.94 (0.66-1.25) mg/dL Glucose 108 H 99 (74-99) mg/dL Calcium 9.0 8.9 (8.4-10.2) mg/dL AST 34 (17-59) U/L ALT 44 (4-49) U/L Alkaline Phosphatase 66 (38-126) U/L Total Protein 7.4 (6.3-8.2) g/dL Albumin 4.3 (3.5-5.0) g/dL Current Medications Generic Name Dose Route Start Last Admin Trade Name Freq PRN Reason Stop Dose Admin Apixaban 5 mg 08/22/24 09:00 08/22/24 09:13 Apixaban 5 Mg Tab PO 5 mg BID SHANICE Administration Protocol Furosemide 20 mg 08/22/24 10:30 Furosemide 20 Mg Tab PO DAILY SHANICE Sodium Chloride 1,000 mls @ 20 mls/hr 08/21/24 19:30 08/22/24 00:01 Saline 0.9% IV Not Given .Q24H SHANICE Amiodarone HCl 450 mg/ 250 mls @ 16.667 mls/hr 08/22/24 05:00 08/22/24 04:36 Dextrose/Water IV 0.5 mg/min .Q15H SHANICE 16.667 mls/hr Administration Protocol 0.5 MG/MIN Metoprolol Succinate 200 mg 08/21/24 23:40 08/22/24 09:13 Metoprolol Succinate (Er) 100 Mg Tab.Er.24h PO 200 mg BID SHANICE Administration Naloxone HCl 0.2 mg 08/21/24 19:27 Naloxone 0.4 Mg/Ml 1 Ml Vial IV Q2M PRN Opioid Reversal Sacubitril/Valsartan 1 each 08/21/24 23:45 08/22/24 09:13 Sacubitril/Valsartan 49 Mg-51 Mg Tablet PO 1 each BID SHANICE Administration Spironolactone 25 mg 08/22/24 10:30 Spironolactone 25 Mg Tab PO DAILY SHANICE Intake and Output 08/21/24 08/22/24 08/22/24 22:59 06:59 14:59 Intake Total 240 Balance 240 Intake: Oral 240 Other: # Voids 1 0 Weight 108.862 kg 112.7 kg 08/22/24 07:03 08/22/24 07:03
[2024-08-22] MEDS: SPIRONOLACTONE 25 MG TAB PO SCH (12:04)
[2024-08-22] MEDS: FUROSEMIDE 20 MG TAB PO SCH (12:04)
--- NOTE | 2024-08-22 15:18 | P.PN ---
Subjective Progress Note Date: 08/22/24 68-year-old male, who states that he has history of hypertension, atrial fibrillation and pacemaker. States that he also has defibrillator. For last 24 hours he has noticed palpitations followed by clicking sensation from his defibrillator. States he was recently prescribed amiodarone however states that he has been having side effect so he stopped it on his own. Denies any pain complaints. Denies lightheadedness. Blood work completed in ED reveals a WBC of 11.7, hemoglobin of 14.8 and platelet count of 287, sodium 139, potassium 3.9, BUNs/creatinine of 19/0.94 and blood glucose of 108, troponin less than 0.012 EKG reveals sinus rhythm without any acute ST or T wave changes Chest x-ray is negative for any acute pulmonary process Objective - Vital Signs Vital signs: Vital Signs Temp 97.6 F 08/22/24 03:49 Pulse 60 08/22/24 03:49 Resp 18 08/22/24 03:49 BP 109/72 08/22/24 03:49 Pulse Ox 96 08/22/24 03:49 FiO2 Intake & Output 08/21/24 08/22/24 08/22/24 18:59 06:59 18:59 Weight 108.862 kg 112.7 kg Other: # Voids 0 - Exam General Impression: Alert and oriented x3, not in acute distress HEENT: Normocephalic atraumatic, extra-ocular movements intact, pupils equal and reactive to light bilaterally, mucous membranes moist. Cardiovascular: Heart regular rate and rhythm Chest: Able to complete full sentences, no retractions, no tachypnea Abdomen: abdomen soft, non-tender, non-distended, no organomegaly Musculoskeletal: Pulses present and equal in all extremities, no peripheral edema Motor: no focal deficits noted Neurological: CN II-XII grossly intact, no focal motor or sensory deficits noted Skin: Intact with no visualized rashes Psych: Normal affect and mood - Labs CBC & Chem 7: 08/22/24 07:03 08/22/24 07:03 Labs: Abnormal Lab Results - Last 24 Hours (Table) 08/21/24 08/21/24 08/21/24 Range/Units 17:30 17:30 17:30 WBC 11.78 H (4.50-10.00) 10*3/uL MCH 26.5 L (27.0-32.0) pg RDW (11.5-14.5) % Neutrophils # 9.06 H (1.80-7.70) 10*3/uL PT 12.7 H (10.0-12.5) sec INR 1.2 H (<1.2) Glucose 108 H (74-99) mg/dL 08/22/24 Range/Units 07:03 WBC (4.50-10.00) 10*3/uL MCH 26.1 L (27.0-32.0) pg RDW 16.0 H (11.5-14.5) % Neutrophils # (1.80-7.70) 10*3/uL PT (10.0-12.5) sec INR (<1.2) Glucose (74-99) mg/dL Assessment and Plan Assessment: 1. Palpitations/pacemaker complication -Plan is to admit patient to telemetry; pacemaker check - Consult cardiology 2. Atrial fibrillation; patient reports he has been placed on amiodarone by primary enlisted aircrew/aerial observer/gunner however patient stopped taking it on its own because of side effects - Patient remains on Eliquis 5 mg twice daily 3. Hypertension; metoprolol 200 mg twice daily; Entresto 49-51 mg twice daily 4. Nonischemic cardiomyopathy/CHF - Patient had dual-chamber ICD in place - Continue with home dose of Lasix - Continue with metoprolol and Entresto 5. History of exercise-induced polymorphic V. tach - Patient reports he took himself off of amiodarone due to side effect DVT prophylaxis; SCD/Eliquis CODE STATUS; full code
[2024-08-23 07:13] LABS: African American GFR (CKD) >90 (>60 ml/min/1.73 sqM); Anion Gap 7 mmol/L; Blood Urea Nitrogen 18 mg/dL (9-20); Calcium 8.7 mg/dL (8.4-10.2); Carbon Dioxide 28 mmol/L (22-30); Chloride 102 mmol/L (98-107); Glucose 97 mg/dL (74-99); Non-African American GFR(CKD) 88 (>60 ml/min/1.73 sqM); Sodium 137 mmol/L (137-145)
--- NOTE | 2024-08-23 08:40 | P.PN ---
Subjective Progress Note Date: 08/23/24 This is a 68-year-old male who presented to the emergency department with complaints of palpitations. Patient reportedly underwent atrial fibrillation ablation on 07/19/2024 and at the end of that procedure the patient remained in atrial fibrillation and underwent cardioversion. Patient was seen a few days later in the office and was found to be in atrial fibrillation. He was reportedly started on amiodarone and started to have palpitations and shortness of breath along with swelling in his ankles so he stopped taking it. Patient also recently feeling shocks from his defibrillator. Upon admission patient was found to have episodes of ventricular tachycardia. He has been maintained on IV amiodarone drip. Patient seen this morning resting comfortably in bed. He denies any current shortness of breath or palpitations. He remains on IV amiodarone. Objective - Vital Signs Vital signs: Vital Signs Temp 98.2 F 08/22/24 20:01 Pulse 67 08/23/24 04:00 Resp 16 08/23/24 04:00 BP 122/80 08/23/24 04:00 Pulse Ox 96 08/23/24 04:00 FiO2 Intake & Output 08/22/24 08/23/24 08/23/24 18:59 06:59 18:59 Intake Total 720 250 240 Balance 720 250 240 Weight 122.2 kg Intake: Intake, IV Titration 250 Amount Amiodarone 450 mg In 250 Dextrose 5% in Water 250 ml @ 0.5 MG/MIN 16.667 mls/hr IV .Q15H [facility] Rx#: [id number] Oral 720 240 - Constitutional General appearance: Present: cooperative, no acute distress - EENT Eyes: Present: PERRLA - Neck Neck: Present: normal ROM. Absent: lymphadenopathy, rigidity - Respiratory Respiratory: bilateral: CTA - Cardiovascular Heart sounds: normal: S1, S2 - Gastrointestinal General gastrointestinal: Present: soft. Absent: tenderness - Integumentary Integumentary: Present: normal, normal turgor - Psychiatric Psychiatric: Present: A&O x's 3 - Labs CBC & Chem 7: 08/22/24 07:03 08/23/24 05:17 Assessment and Plan (1) Palpitations Current Visit: Yes Status: Acute Code(s): R00.2 - PALPITATIONS SNOMED Code(s): 55070646 (2) Atrial fibrillation Current Visit: Yes Status: Acute Code(s): I48.91 - UNSPECIFIED ATRIAL FIBRILLATION SNOMED Code(s): 34724253 (3) Pacemaker complications Current Visit: Yes Status: Acute Code(s): T82.9XXA - UNSP COMP OF CARDIAC AND VASCULAR PROSTH DEV/GRFT, INIT SNOMED Code(s): 228679157 (4) Essential (primary) hypertension Current Visit: No Status: Acute Code(s): I10 - ESSENTIAL (PRIMARY) HYPERTENSION SNOMED Code(s): 03738628 (5) Nonischemic cardiomyopathy Current Visit: Yes Status: Acute Code(s): I42.8 - OTHER CARDIOMYOPATHIES SNOMED Code(s): 97625120 Plan: Appreciate cardiology input. Patient seen and evaluated by nurse practitioner, physician in agreement with plan.
[2024-08-23] MEDS: MEXILETINE 150 MG CAP PO SCH (08:59)
--- NOTE | 2024-08-23 13:36 | P.PN ---
Subjective HISTORY OF PRESENT ILLNESS: This is a 68-year-old male with a past medical history significant for nonischemic cardiomyopathy, ventricular tachycardia, atrial fibrillation, atrial flutter, and A-fib ablation on 07/19/2024. Patient follows in the office with Dr. Thompson. We have been asked to see the patient in consultation for palpitations. Patient examined at the bedside. Patient underwent atrial fibrillation ablation on 07/19/2024. At the end of the procedure, the patient remained in atrial fibrillation and underwent cardioversion. Patient was seen back in the office on 07/27/2024. Patient was found to be back in atrial fibrillation. He was placed on amiodarone once a day for 5 days. He states that he called and spoke with the office and told them he had been having palpitations and shortness of breath along with swelling in his ankles. He states his dose was then increased to 800 mg a day. He states that he continued to feel worse and he stopped taking the amiodarone altogether. The patient reports having episodes of pal pitations and believes that he was shocked 4 times in a period of 3 to 4 hours by his defibrillator. Patient presented to the ER for further evaluation. Patient was found to have episodes of ventricular tachycardia. Patient was started on IV amiodarone. ICD interrogation this morning revealed episodes of ventricular tachycardia with ATP x 6. No defibrillation noted. Since patient has been on IV amiodarone episodes of VT have resolved. DIAGNOSTICS: - EKG reveals atrial fibrillation with PVCs. Bedside telemetry reveals paced rhythm with underlying atrial fibrillation. - Chest xray clinical correlation for volume overload. Small right pleural effusion. - Laboratory data: WBC 7.29. Hemoglobin 13.1. Platelet count 255. Sodium 138. Potassium 4.1. BUN 17. Creatinine 0.94. Troponin negative x 1 - Current home cardiac medications include Eliquis 5 mg twice a day, Lasix 20 mg daily as needed, metoprolol succinate 200 mg twice a day, Entresto 49-51 mg twice a day - Most recent echocardiogram obtained in the office in July 2024 revealed ejection fraction 45%, mild concentric LVH, severely dilated left atrium, mildly dilated right atrium, mild aortic regurgitation, mild to moderate MR, mild to moderate TR, normal pulmonary artery systolic pressure. - Cardiac catheterization history: 2017 revealing normal coronary arteries 08/23/2024 Patient examined this morning at the bedside. Patient currently denies chest pain or pressure. Patient denies shortness of breath. Vital signs are stable. He remains on IV amiodarone. No further significant episodes of ventricular tachycardia. PHYSICAL EXAM: VITAL SIGNS: Reviewed. GENERAL: Well-developed in no acute distress. HEENT: Head is normocephalic. Pupils are equal, round. Sclerae anicteric. Mucous membranes of the mouth are moist. Neck supple. No JVD or thyromegaly LUNGS: Respirations even and unlabored. Lungs essentially clear to auscultation bilaterally. HEART: Irregular rate and rhythm. S1 and S2 heard. ABDOMEN: Soft. Nondistended. Nontender. EXTREMITIES: Normal range of motion. No clubbing or cyanosis. Peripheral pulses intact. No lower extremity edema NEUROLOGIC: Awake and alert. Oriented x 3. ASSESSMENT: Sustained ventricular tachycardia with ATP treatment x 6, no defibrillation noted on ICD interrogation Paroxysmal atrial fibrillation History of A-fib ablation with pulmonary vein isolation, 07/19/2024 History of nonischemic cardiomyopathy, 45% History of exercise-induced polymorphic VT History of atrial flutter with previous ablation PLAN: 2D echo ordered. Await results. Continue anticoagulation with Eliquis Continue Lasix, metoprolol, Entresto, and Aldactone Case discussed this morning with Dr. Thompson. Add mexiletine 150 mg every 8 hours Continue IV amiodarone at 0.5 mg/min. Do not discontinue infusion. Continue telemetry monitoring Patient will be evaluated by Dr. Thompson, irrigationist. Await recommendations Further recommendations pending patient course Nurse practitioner note has been reviewed by physician. Signing provider agrees with the documented findings, assessment, and plan of care documented by OIL DISPATCHER as a scribe. Objective - Vital Signs Vital signs: Vital Signs Temp 97.3 F L 08/23/24 11:31 Pulse 60 08/23/24 11:31 Resp 20 08/23/24 11:31 BP 122/77 08/23/24 11:31 Pulse Ox 99 08/23/24 11:31 FiO2 Intake & Output 08/22/24 08/23/24 08/23/24 18:59 06:59 18:59 Intake Total 720 250 480 Balance 720 250 480 Weight 122.2 kg Intake: Intake, IV Titration 250 Amount Amiodarone 450 mg In 250 Dextrose 5% in Water 250 ml @ 0.5 MG/MIN 16.667 mls/hr IV .Q15H [facility] Rx#: [id number] Oral 720 480 - Labs CBC & Chem 7: 08/22/24 07:03 08/23/24 05:17
--- NOTE | 2024-08-23 14:28 | CA ---
Transthoracic Echo Report Name: Neil Roberts Age: 68 Gender: M : 1955 Exam Date: 08/23/2024 11:27 Exam Location: [facility] Ht (in): 73 Wt (lb): 248 Ordering Physician: Michelle Boogie MD ([id number]) Attending/Referring Phys: Finance Effectiveness Manager Mariah Quintanilla RDCS Procedure CPT: Indications: vt Cardiac Hx: AICD, HX of oblation Technical Quality: Fair Contrast 1: Definity Total Dose (mL): 2 Contrast 2: Total Dose (mL): MEASUREMENTS (Male / Female) Normal Values 2D ECHO LV Diastolic Diameter PLAX 5.4 cm 4.2 - 5.9 / 3.9 - 5.3 cm LV Systolic Diameter PLAX 5.1 cm IVS Diastolic Thickness 1.3 cm 0.6 - 1.0 / 0.6 - 0.9 cm LVPW Diastolic Thickness 1.3 cm 0.6 - 1.0 / 0.6 - 0.9 cm LV Relative Wall Thickness 0.5 RV Internal Dim ED PLAX 3.9 cm LA Systolic Diameter LX 4.9 cm 3.0 - 4.0 / 2.7 - 3.8 cm LV Diastolic Volume MOD BP 180.9 cm??? 67 - 155 / 56 - 104 cm??? LV Systolic Volume MOD BP 123.3 cm??? 22 - 58 / 19 - 49 cm??? LV Ejection Fraction MOD BP 31.8 % >= 55 % LV Cardiac Index MOD BP 1415.6 cm???/min???m??? LV Diastolic Volume MOD 4C 149.2 cm??? LV Systolic Volume MOD 4C 110.8 cm??? LV Ejection Fraction MOD 4C 25.7 % LV Cardiac Index MOD 4C 943.4 cm???/min???m??? LV Diastolic Length 4C 8.5 cm LV Systolic Length 4C 8.1 cm LV Diastolic Volume MOD 2C 155.7 cm??? LV Systolic Volume MOD 2C 119.3 cm??? LV Ejection Fraction MOD 2C 23.4 % LV Cardiac Index MOD 2C 896.8 cm???/min???m??? LV Diastolic Length 2C 8.3 cm LV Systolic Length 2C 8.1 cm M-MODE Aortic Root Diameter MM 4.2 cm LA Systolic Diameter MM 1.7 cm LA Ao Ratio MM 0.4 DOPPLER AV Peak Velocity 102.4 cm/s AV Peak Gradient 4.2 mmHg AV Mean Velocity 62.3 cm/s AV Mean Gradient 1.9 mmHg AV Velocity Time Integral 19.6 cm LVOT Peak Velocity 70.1 cm/s LVOT Peak Gradient 2.0 mmHg LVOT Velocity Time Integral 15.2 cm MV Area PHT 4.6 cm??? TR Peak Velocity 221.9 cm/s TR Peak Gradient 19.7 mmHg Right Ventricular Systolic Press 39.7 mmHg FINDINGS Left Ventricle Left ventricular ejection fraction is estimated at 25-30 %. Mildly increased septal wall thickness. Moderately increased left ventricular diastolic volume. Severely increased left ventricular systolic volume. Moderately decreased left ventricular ejection fraction. Right Ventricle Mild right ventricular dilatation. Mild pulmonary hypertension. Right Atrium Moderate right atrial dilatation. No right atrial thrombus or mass seen. Left Atrium Moderately increased left atrial diameter. No left atrial thrombus or mass present. Mitral Valve Mitral valve thickened. Mild mitral annular calcification. Mild mitral regurgitation. Aortic Valve Trileaflet aortic valve. Aortic valve sclerosis. No aortic stenosis. Mild aortic regurgitation. Tricuspid Valve Structurally normal tricuspid valve. Mild tricuspid regurgitation. Pulmonic Valve Structurally normal pulmonic valve. Trace pulmonic regurgitation. Pericardium No pericardial effusion. Aorta Moderate aortic dilatation at the level of the sinuses of valsalva 42 mm CONCLUSIONS LVEF 20 to 25% Hypokinetic inferoseptal wall Severely reduced global LV systolic function Mild RV dilatation with RVSP estimated at 40 mmHg Moderate biatrial dilatation Mild MR Mild aortic regurgitation Mild TR Previewed by: Dr Rachid Booth (Electronically Signed) Final Date: 23 August 2024 14:28
--- NOTE | 2024-08-24 08:33 | P.PN ---
Subjective Progress Note Date: 08/24/24 This is a 68-year-old male who presented to the emergency department with complaints of palpitations. Patient reportedly underwent atrial fibrillation ablation on 07/19/2024 and at the end of that procedure the patient remained in atrial fibrillation and underwent cardioversion. Patient was seen a few days later in the office and was found to be in atrial fibrillation. He was reportedly started on amiodarone and started to have palpitations and shortness of breath along with swelling in his ankles so he stopped taking it. Patient also recently feeling shocks from his defibrillator. Upon admission patient was found to have episodes of ventricular tachycardia. He has been maintained on IV amiodarone drip. Patient seen this morning resting comfortably in bed. He denies any current shortness of breath or palpitations. He remains on IV amiodarone. 08/24/2024 Patient seen and evaluated sitting up in bed this morning resting comfortably. He remains on IV amiodarone. Plan is for procedure with Dr. Thompson later this afternoon. Patient continues to deny any shortness of breath or palpitations. Objective - Vital Signs Vital signs: Vital Signs Temp 97.5 F L 08/24/24 07:38 Pulse 59 L 08/24/24 07:38 Resp 18 08/24/24 07:38 BP 132/81 08/24/24 07:38 Pulse Ox 95 08/24/24 07:38 FiO2 Intake & Output 08/23/24 08/24/24 08/24/24 18:59 06:59 18:59 Intake Total 1510 Balance 1510 Intake: Intake, IV Titration 250 Amount Amiodarone 450 mg In 250 Dextrose 5% in Water 250 ml @ 0.5 MG/MIN 16.667 mls/hr IV .Q15H [facility] Rx#: [id number] Oral 1260 - Constitutional General appearance: Present: cooperative, no acute distress - EENT Eyes: Present: PERRLA - Neck Neck: Present: normal ROM. Absent: lymphadenopathy, rigidity - Respiratory Respiratory: bilateral: CTA - Cardiovascular Heart sounds: normal: S1, S2 - Gastrointestinal General gastrointestinal: Present: soft. Absent: tenderness - Integumentary Integumentary: Present: normal, normal turgor - Psychiatric Psychiatric: Present: A&O x's 3, appropriate affect, intact judgment & insight - Labs CBC & Chem 7: 08/22/24 07:03 08/23/24 05:17 Assessment and Plan (1) Palpitations Current Visit: Yes Status: Acute Code(s): R00.2 - PALPITATIONS SNOMED Code(s): 37481108 (2) Atrial fibrillation Current Visit: Yes Status: Acute Code(s): I48.91 - UNSPECIFIED ATRIAL FIBRILLATION SNOMED Code(s): 30508737 (3) Pacemaker complications Current Visit: Yes Status: Acute Code(s): T82.9XXA - UNSP COMP OF CARDIAC AND VASCULAR PROSTH DEV/GRFT, INIT SNOMED Code(s): 797167458 (4) Essential (primary) hypertension Current Visit: No Status: Acute Code(s): I10 - ESSENTIAL (PRIMARY) HYPERTENSION SNOMED Code(s): 32144235 (5) Nonischemic cardiomyopathy Current Visit: Yes Status: Acute Code(s): I42.8 - OTHER CARDIOMYOPATHIES SNOMED Code(s): 58501483 Plan: Appreciate cardiology input. Await procedure with Dr. Thompson later today. Patient seen and evaluated by nurse practitioner, physician in agreement with plan.
--- NOTE | 2024-08-24 14:03 | P.PN ---
Subjective HISTORY OF PRESENT ILLNESS: This is a 68-year-old male with a past medical history significant for nonischemic cardiomyopathy, ventricular tachycardia, atrial fibrillation, atrial flutter, and A-fib ablation on 07/19/2024. Patient follows in the office with Dr. Thompson. We have been asked to see the patient in consultation for palpitations. Patient examined at the bedside. Patient underwent atrial fibrillation ablation on 07/19/2024. At the end of the procedure, the patient remained in atrial fibrillation and underwent cardioversion. Patient was seen back in the office on 07/27/2024. Patient was found to be back in atrial fibrillation. He was placed on amiodarone once a day for 5 days. He states that he called and spoke with the office and told them he had been having palpitations and shortness of breath along with swelling in his ankles. He states his dose was then increased to 800 mg a day. He states that he continued to feel worse and he stopped taking the amiodarone altogether. The patient reports having episodes of pal pitations and believes that he was shocked 4 times in a period of 3 to 4 hours by his defibrillator. Patient presented to the ER for further evaluation. Patient was found to have episodes of ventricular tachycardia. Patient was started on IV amiodarone. ICD interrogation this morning revealed episodes of ventricular tachycardia with ATP x 6. No defibrillation noted. Since patient has been on IV amiodarone episodes of VT have resolved. DIAGNOSTICS: - EKG reveals atrial fibrillation with PVCs. Bedside telemetry reveals paced rhythm with underlying atrial fibrillation. - Chest xray clinical correlation for volume overload. Small right pleural effusion. - Laboratory data: WBC 7.29. Hemoglobin 13.1. Platelet count 255. Sodium 138. Potassium 4.1. BUN 17. Creatinine 0.94. Troponin negative x 1 - Current home cardiac medications include Eliquis 5 mg twice a day, Lasix 20 mg daily as needed, metoprolol succinate 200 mg twice a day, Entresto 49-51 mg twice a day - Most recent echocardiogram obtained in the office in July 2024 revealed ejection fraction 45%, mild concentric LVH, severely dilated left atrium, mildly dilated right atrium, mild aortic regurgitation, mild to moderate MR, mild to moderate TR, normal pulmonary artery systolic pressure. - Cardiac catheterization history: 2017 revealing normal coronary arteries 08/23/2024 Patient examined this morning at the bedside. Patient currently denies chest pain or pressure. Patient denies shortness of breath. Vital signs are stable. He remains on IV amiodarone. No further significant episodes of ventricular tachycardia. 08/24/2024 Patient examined this morning to bedside. Patient currently denies chest pain or pressure. He denies shortness of breath. Vital signs are stable. He remains on IV amiodarone. Echocardiogram performed revealing ejection fraction 25 to 30%, mild pulmonary hypertension, mild MR, mild AI, mild TR PHYSICAL EXAM: VITAL SIGNS: Reviewed. GENERAL: Well-developed in no acute distress. HEENT: Head is normocephalic. Pupils are equal, round. Sclerae anicteric. Mucous membranes of the mouth are moist. Neck supple. No JVD or thyromegaly LUNGS: Respirations even and unlabored. Lungs essentially clear to auscultation bilaterally. HEART: Irregular rate and rhythm. S1 and S2 heard. ABDOMEN: Soft. Nondistended. Nontender. EXTREMITIES: Normal range of motion. No clubbing or cyanosis. Peripheral pulses intact. No lower extremity edema NEUROLOGIC: Awake and alert. Oriented x 3. ASSESSMENT: Sustained ventricular tachycardia with ATP treatment x 6, no defibrillation noted on ICD interrogation Paroxysmal atrial fibrillation History of A-fib ablation with pulmonary vein isolation, 07/19/2024 History of nonischemic cardiomyopathy, 45%, now worsened at 25 to 30% History of exercise-induced polymorphic VT History of atrial flutter with previous ablation PLAN: Continue anticoagulation with Eliquis Continue Lasix, metoprolol, Entresto, and Aldactone Continue IV amiodarone at 0.5 mg/min. Do not discontinue infusion. Continue mexiletine 150 mg 3 times a day Continue telemetry monitoring Patient to undergo NIPS (noninvasive programmed stimulation) this evening with Dr. Thompson Further recommendations pending patient course Nurse practitioner note has been reviewed by physician. Signing provider agrees with the documented findings, assessment, and plan of care documented by P[employer]ER[employer]OR as a scribe. Objective - Vital Signs Vital signs: Vital Signs Temp 97.8 F 08/24/24 11:00 Pulse 60 08/24/24 11:00 Resp 16 08/24/24 11:00 BP 125/84 08/24/24 11:00 Pulse Ox 95 08/24/24 11:00 FiO2 Intake & Output 08/23/24 08/24/24 08/24/24 18:59 06:59 18:59 Intake Total 1510 250 Balance 1510 250 Intake: Intake, IV Titration 250 250 Amount Amiodarone 450 mg In 250 250 Dextrose 5% in Water 250 ml @ 0.5 MG/MIN 16.667 mls/hr IV .Q15H [facility] Rx#: [id number] Oral 1260 - Labs CBC & Chem 7: 08/22/24 07:03 08/23/24 05:17
--- NOTE | 2024-08-25 08:13 | P.PN ---
Subjective Principal diagnosis: Atrial fibrillation The patient is essentially awaiting [employer]GER procedure today. Otherwise the patient is asymptomatic. No fever or chills no voiding difficulties. Objective - Vital Signs Vital signs: Vital Signs Temp 97.7 F 08/25/24 07:27 Pulse 59 L 08/25/24 07:27 Resp 17 08/25/24 07:27 BP 142/83 08/25/24 07:27 Pulse Ox 96 08/25/24 07:27 FiO2 Intake & Output 08/24/24 08/25/24 08/25/24 18:59 06:59 18:59 Intake Total 689.2 Balance 689.2 Weight 118.1 kg Intake: IV 199.2 Amiodarone 450 mg In 199.2 Dextrose 5% in Water 250 ml @ 0.5 MG/MIN 16.667 mls/hr IV .Q15H [facility] Rx#: [id number] Intake, IV Titration 490 Amount Amiodarone 450 mg In 250 Dextrose 5% in Water 250 ml @ 0.5 MG/MIN 16.667 mls/hr IV .Q15H [facility] Rx#: [id number] Sodium Chloride 0.9% 1, 240 000 ml @ 20 mls/hr IV . Q24H [facility] Rx#:[id number] - Constitutional General appearance: Present: cooperative - Neck Neck: Absent: lymphadenopathy - Respiratory Respiratory: bilateral: diminished - Cardiovascular Rhythm: irregularly irregular Heart sounds: normal: S1, S2 Abnormal Heart Sounds: Absent: S3 Gallop - Gastrointestinal General gastrointestinal: Present: soft. Absent: tenderness - Labs CBC & Chem 7: 08/22/24 07:03 08/23/24 05:17 Assessment and Plan (1) Atrial fibrillation Current Visit: Yes Status: Acute Code(s): I48.91 - UNSPECIFIED ATRIAL FIBRILLATION SNOMED Code(s): 96440606 (2) Nonischemic cardiomyopathy Current Visit: Yes Status: Acute Code(s): I42.8 - OTHER CARDIOMYOPATHIES SNOMED Code(s): 93870815 (3) Pacemaker complications Current Visit: Yes Status: Acute Code(s): T82.9XXA - UNSP COMP OF CARDIAC AND VASCULAR PROSTH DEV/GRFT, INIT SNOMED Code(s): 099969550 (4) Palpitations Current Visit: Yes Status: Acute Code(s): R00.2 - PALPITATIONS SNOMED Code(s): 42132174 (5) Essential (primary) hypertension Current Visit: No Status: Acute Code(s): I10 - ESSENTIAL (PRIMARY) HYPERTENSION SNOMED Code(s): 90271206 Plan: Await cardiology testing today. Will continue to follow.
--- NOTE | 2024-08-25 14:06 | P.PN ---
Subjective HISTORY OF PRESENT ILLNESS: This is a 68-year-old male with a past medical history significant for nonischemic cardiomyopathy, ventricular tachycardia, atrial fibrillation, atrial flutter, and A-fib ablation on 07/19/2024. Patient follows in the office with Dr. Thompson. We have been asked to see the patient in consultation for palpitations. Patient examined at the bedside. Patient underwent atrial fibrillation ablation on 07/19/2024. At the end of the procedure, the patient remained in atrial fibrillation and underwent cardioversion. Patient was seen back in the office on 07/27/2024. Patient was found to be back in atrial fibrillation. He was placed on amiodarone once a day for 5 days. He states that he called and spoke with the office and told them he had been having palpitations and shortness of breath along with swelling in his ankles. He states his dose was then increased to 800 mg a day. He states that he continued to feel worse and he stopped taking the amiodarone altogether. The patient reports having episodes of pal pitations and believes that he was shocked 4 times in a period of 3 to 4 hours by his defibrillator. Patient presented to the ER for further evaluation. Patient was found to have episodes of ventricular tachycardia. Patient was started on IV amiodarone. ICD interrogation this morning revealed episodes of ventricular tachycardia with ATP x 6. No defibrillation noted. Since patient has been on IV amiodarone episodes of VT have resolved. DIAGNOSTICS: - EKG reveals atrial fibrillation with PVCs. Bedside telemetry reveals paced rhythm with underlying atrial fibrillation. - Chest xray clinical correlation for volume overload. Small right pleural effusion. - Laboratory data: WBC 7.29. Hemoglobin 13.1. Platelet count 255. Sodium 138. Potassium 4.1. BUN 17. Creatinine 0.94. Troponin negative x 1 - Current home cardiac medications include Eliquis 5 mg twice a day, Lasix 20 mg daily as needed, metoprolol succinate 200 mg twice a day, Entresto 49-51 mg twice a day - Most recent echocardiogram obtained in the office in July 2024 revealed ejection fraction 45%, mild concentric LVH, severely dilated left atrium, mildly dilated right atrium, mild aortic regurgitation, mild to moderate MR, mild to moderate TR, normal pulmonary artery systolic pressure. - Cardiac catheterization history: 2017 revealing normal coronary arteries 08/23/2024 Patient examined this morning at the bedside. Patient currently denies chest pain or pressure. Patient denies shortness of breath. Vital signs are stable. He remains on IV amiodarone. No further significant episodes of ventricular tachycardia. 08/24/2024 Patient examined this morning to bedside. Patient currently denies chest pain or pressure. He denies shortness of breath. Vital signs are stable. He remains on IV amiodarone. Echocardiogram performed revealing ejection fraction 25 to 30%, mild pulmonary hypertension, mild MR, mild AI, mild TR 08/25/2024 Patient examined this morning at the bedside. Patient currently denies chest pain or pressure. He denies shortness of breath. He complains of abdominal pressure. He states he is not constipated and had a bowel movement this morning. Vital signs are stable. He remains on IV amiodarone. PHYSICAL EXAM: VITAL SIGNS: Reviewed. GENERAL: Well-developed in no acute distress. HEENT: Head is normocephalic. Pupils are equal, round. Sclerae anicteric. Mucous membranes of the mouth are moist. Neck supple. No JVD or thyromegaly LUNGS: Respirations even and unlabored. Lungs essentially clear to auscultation bilaterally. HEART: Irregular rate and rhythm. S1 and S2 heard. ABDOMEN: Soft. Nondistended. Nontender. EXTREMITIES: Normal range of motion. No clubbing or cyanosis. Peripheral pulses intact. No lower extremity edema NEUROLOGIC: Awake and alert. Oriented x 3. ASSESSMENT: Sustained ventricular tachycardia with ATP treatment x 6, no defibrillation noted on ICD interrogation Paroxysmal atrial fibrillation History of A-fib ablation with pulmonary vein isolation, 07/19/2024 History of nonischemic cardiomyopathy, 45%, now worsened at 25 to 30% History of exercise-induced polymorphic VT History of atrial flutter with previous ablation PLAN: Continue anticoagulation with Eliquis Continue Lasix, metoprolol, Entresto, and Aldactone Continue IV amiodarone at 0.5 mg/min. Do not discontinue infusion. Continue mexiletine 150 mg 3 times a day Continue telemetry monitoring N.p.o. at midnight except medications Patient to undergo NIPS (noninvasive programmed stimulation) tomorrow morning 08/26/2024 at [address] Thompson Further recommendations pending patient course Nurse practitioner note has been reviewed by physician. Signing provider agrees with the documented findings, assessment, and plan of care documented by [employer]PER[employer]SF[employer]ING [employer]OXING as a scribe. Objective - Vital Signs Vital signs: Vital Signs Temp 97.6 F 08/25/24 08:00 Pulse 60 08/25/24 12:00 Resp 16 08/25/24 12:00 BP 121/83 08/25/24 12:00 Pulse Ox 95 08/25/24 12:00 FiO2 Intake & Output 08/24/24 08/25/24 08/25/24 18:59 06:59 18:59 Intake Total 689.2 Balance 689.2 Weight 118.1 kg Intake: IV 199.2 Amiodarone 450 mg In 199.2 Dextrose 5% in Water 250 ml @ 0.5 MG/MIN 16.667 mls/hr IV .Q15H [facility] Rx#: [id number] Intake, IV Titration 490 Amount Amiodarone 450 mg In 250 Dextrose 5% in Water 250 ml @ 0.5 MG/MIN 16.667 mls/hr IV .Q15H [facility] Rx#: [id number] Sodium Chloride 0.9% 1, 240 000 ml @ 20 mls/hr IV . Q24H [facility] Rx#:[id number] - Labs CBC & Chem 7: 08/22/24 07:03 08/23/24 05:17
[2024-08-25] MEDS: SODIUM CHLORIDE 0.9% 1,000 ML IV SCH ×2 (20:26)
--- NOTE | 2024-08-26 08:40 | P.PN ---
Subjective Progress Note Date: 08/26/24 This is a 68-year-old male who presented to the emergency department with complaints of palpitations. Patient reportedly underwent atrial fibrillation ablation on 07/19/2024 and at the end of that procedure the patient remained in atrial fibrillation and underwent cardioversion. Patient was seen a few days later in the office and was found to be in atrial fibrillation. He was reportedly started on amiodarone and started to have palpitations and shortness of breath along with swelling in his ankles so he stopped taking it. Patient also recently feeling shocks from his defibrillator. Upon admission patient was found to have episodes of ventricular tachycardia. He has been maintained on IV amiodarone drip. Patient seen this morning resting comfortably in bed. He denies any current shortness of breath or palpitations. He remains on IV amiodarone. 08/24/2024 Patient seen and evaluated sitting up in bed this morning resting comfortably. He remains on IV amiodarone. Plan is for procedure with Dr. Thompson later this afternoon. Patient continues to deny any shortness of breath or palpitations. 08/26/2024 Patient seen and evaluated sitting up in bed this morning resting comfortably. He remains on IV amiodarone. Patient is still awaiting NIPS procedure to be performed with Dr. Thompson. Reportedly procedure will be later this morning. Objective - Vital Signs Vital signs: Vital Signs Temp 97.2 F L 08/26/24 08:00 Pulse 60 08/26/24 08:00 Resp 16 08/26/24 08:00 BP 130/82 08/26/24 08:00 Pulse Ox 96 08/26/24 08:00 FiO2 Intake & Output 08/25/24 08/26/24 08/26/24 18:59 06:59 18:59 Intake Total 720 Balance 720 Weight 116.2 kg Intake: Oral 720 - Constitutional General appearance: Present: cooperative, no acute distress - EENT Eyes: Present: PERRLA - Neck Neck: Present: normal ROM. Absent: lymphadenopathy, rigidity - Respiratory Respiratory: bilateral: CTA - Cardiovascular Heart sounds: normal: S1, S2 - Gastrointestinal General gastrointestinal: Present: soft. Absent: tenderness - Integumentary Integumentary: Present: normal, normal turgor - Psychiatric Psychiatric: Present: A&O x's 3, appropriate affect, intact judgment & insight - Labs CBC & Chem 7: 08/22/24 07:03 08/23/24 05:17 Assessment and Plan (1) Palpitations Current Visit: Yes Status: Acute Code(s): R00.2 - PALPITATIONS SNOMED Code(s): 26096535 (2) Atrial fibrillation Current Visit: Yes Status: Acute Code(s): I48.91 - UNSPECIFIED ATRIAL FIBRILLATION SNOMED Code(s): 59935852 (3) Pacemaker complications Current Visit: Yes Status: Acute Code(s): T82.9XXA - UNSP COMP OF CARDIAC AND VASCULAR PROSTH DEV/GRFT, INIT SNOMED Code(s): 768264989 (4) Essential (primary) hypertension Current Visit: No Status: Acute Code(s): I10 - ESSENTIAL (PRIMARY) HYPERTENSION SNOMED Code(s): 38916025 (5) Nonischemic cardiomyopathy Current Visit: Yes Status: Acute Code(s): I42.8 - OTHER CARDIOMYOPATHIES SNOMED Code(s): 67690570 Plan: Appreciate cardiology input. Await procedure with Dr. Thompson later today. Patient seen and evaluated by nurse practitioner, physician in agreement with plan.
[2024-08-26] MEDS ORDERED: MIDAZOLAM 2 MG/2 ML VIAL ONE (09:48)
[2024-08-26] MEDS ORDERED: fentaNYL (PF) 50 MCG/ML 2 ML AMP ONE (09:48)
[2024-08-26] MEDS ORDERED: ETOMIDATE 2 MG/ML 10 ML VIAL ONE (09:48)
[2024-08-26] MEDS ORDERED: PROPOFOL 10 MG/ML 20 ML VIAL IV ONE (09:48)
[2024-08-26] MEDS: IV FLUID CONTINUATION 1,000 ML IV ONE (09:59)
[2024-08-26] MEDS: IOPAMIDOL-370 100ML BTL INJ ONE (10:18)
--- NOTE | 2024-08-26 11:43 | P.EPCON ---
Electrophysiology Consult - EP Consult Electrophysiology Consult: This is Dr. Thompson dictating a consult on this patient The patient was interviewed and examined IMPRESSION / ASSESSMENT: Recurrent V. tach, likely high septal region, successful ATP Associated presyncope Nonischemic cardiomyopathy, scar in the anterior septum and in the inferior wall on cardiac MRI in 2018 Nonischemic distribution. Patient has normal coronary arteries in 2018 Persistent atrial fibrillation Increased RV pacing percentage noted recently, greater than 70% Corresponds with reduction in LV systolic function. Now this is about 25%. Previously it was 40-45% This is Dr. Thompson dictating a consult on this patient The patient was interviewed and examined IMPRESSION / ASSESSMENT: Recurrent VT cycle length of 320-340 ms, antitachycardia pacing was successful, associated presyncope Worsening cardiomyopathy in the setting of 100% RV pacing with underlying atrial fibrillation Class II-III congestive heart failure, chronic, on guideline directed medical treatment Recent A-fib ablation with PVI only Underlying nonischemic cardiomyopathy with myocarditis Prior cardiac MRI revealed mid myocardial scar in the anterior septum and in the inferior lateral marshall, nonischemic pattern Review of the runs of nonsustained VT: High septal focus likely from the mid myocardial scar in the anterior septum that was detected on MRI previously If we are able to maintain sinus rhythm with minimal RV pacing I anticipate that his LV function will improve to his baseline of 45 to 50% However if you are unable to maintain sinus rhythm I would recommend repeat A- fib ablation with linear ablation in the left and right atria If despite that his RV pacing percentage is high, upgrade to a biventricular system would be appropriate to improve his LV function and heart failure status PLAN: Continue IV amiodarone Add mexiletine Continue Eliquis Continue Entresto Continue Aldactone Schedule noninvasive programmed stimulation and electrical cardioversion to sinus rhythm in the next few days Left upper extremity venogram HPI Patient came to the hospital stating that he was having palpitations and became dizzy. He states he was restarted on oral amiodarone but he was having some symptoms and side effects from it and stopped it. He has a [employer] ICD dual-chamber interrogation of the device revealed episodes of VT with a cycle length ranging from 320-340 ms, monomorphic. Antitachycardia pacing was able to terminate this repeatedly. The patient did not receive any ICD shocks Here he was experiencing runs of VT and was started on IV amiodarone. Since he was already on oral amiodarone for a few weeks I also added mexiletine to suppress VT. He has had very brief runs of nonsustained VT. He does complain of GI upset He also complains of shortness of breath with exertion The other issue that we observed was that he was in persistent atrial fibrillation. Previously he had paroxysmal atrial fibrillation. He was also RV pacing 100% during atrial fibrillation with reduction in LV systolic function. 2D echo revealed ejection fraction of 25 to 30% with a dilated left ventricle which is much lower than his baseline ROS: No fever chills or rigors, no cough, phlegm or expectoration, no nausea, vomiting or diarrhea, he has felt a lot of bloating and gas in his belly no hematuria, dysuria, no musculoskeletal complaints, no strokes or seizures, no skin lesions. EXAMINATION: Blood pressure 130/82 mmHg pulse rate in the 60s afebrile Breath sounds are reduced bilaterally Heart sounds S1-S2 are soft normal no S3 gallop Abdomen is soft No JVD REVIEW OF LABS, ECG & MEDICAL DATA Normal electrolytes normal kidney function, normal magnesium normal troponin Reduced LV systolic function with dilated LV in the setting of hundredths and RV pacing with underlying atrial fibrillation
[2024-08-26] MEDS: SENNOSIDES-DOCUSATE SODIUM 1 EACH TAB PO SCH (12:10)
--- NOTE | 2024-08-26 13:08 | P.EPPROC ---
- EP Procedure Note Electrophysiology Procedure Note: Indication for procedure Recurrent VT, despite oral amiodarone with presyncope Persistent atrial fibrillation with 100% RV pacing during A-fib Intended plan for the procedure Noninvasive programmed stimulation to induce VT, assess morphology and plan for any future VT ablation Electrical cardioversion to sinus rhythm and to minimize RV pacing Left upper extremity venogram and cinefluoroscopy of the leads Dual-chamber ICD interrogation and reprogramming Final procedures performed and results 1. Noninvasive programmed stimulation which induced ventricular tachycardia with a of 196 beats a minute. Antitachycardia pacing failed to terminate this and an internal shock was successful in cardioverting the patient to sinus rhythm 2. This shock resulted in conversion from atrial fibrillation to sinus rhythm. In sinus rhythm and along with VIP mode turned on, minimal ventricular pacing was noted 3. Cinefluoroscopy of the leads revealed an ICD lead and right atrial lead, no fractures or breaks 4. 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 Patient has a right atrial lead in stable position. ICD lead in the right ventricular apex and stable position. No fractures or breaks Left upper extremity venogram performed. IV dye injected. Partially patent left subclavian vein but with mild stenosis with collateral vein There is enough room to pass the third lead if needed, in the future. Noninvasive programmed stimulation performed. VT induced with triple extrastimuli from the ICD lead/RV apex Antitachycardia pacing failed. Cardioversion for VT successful Atrial fibrillation was also cardioverted to sinus rhythm Dual-chamber ICD reprogrammed MVP turned on. Base pacing 60 beats a minute Minimal RV pacing noted in sinus rhythm Antitachycardia pacing reprogrammed VT detection intervals and zones reprogrammed Patient tolerated the procedure well without any complications Detail discussion with the family regarding 1. Management of atrial fibrillation and VT with antiarrhythmic drug therapy 2. Potential for VT ablation and the issues with mid myocardial scar in the anterior septum 3. Management of atrial fibrillation with redo A-fib ablation in the future 4. Upgrade to a BiV ICD in the future if needed
[2024-08-26] MEDS: AMIODARONE 200 MG TAB PO SCH (17:09)
[2024-08-26 17:51] VITALS: BP 129/87; PULSE 62; RESP 18; TEMP 97.6
--- NOTE | 2024-08-26 19:13 | P.DS ---
Providers Date of admission: 08/21/24 19:28 Expected date of discharge: 08/26/24 Attending physician: Tong Sexton Consults: 08/21/24 19:27 Consult Physician Routine Consulting Provider: Eliel Thompson Consult Reason/Comments: palpitations Do you want consulting provider notified?: Yes Primary care physician: Tong Sexton - Discharge Diagnosis(es) (1) Atrial fibrillation Current Visit: Yes Status: Acute (2) Nonischemic cardiomyopathy Current Visit: Yes Status: Acute (3) Pacemaker complications Current Visit: Yes Status: Acute (4) Palpitations Current Visit: Yes Status: Acute (5) Essential (primary) hypertension Current Visit: No Status: Acute Hospital Course: This is a 68-year-old white male since admitted for uncontrolled atrial fibrillation. He ended up having EPS study which then required significant changes to his medication as stated above. He is cleared by cardiology to follow up with me in about 1 week. He is tolerating diet no fever or chills no significant chest pain. Difficult to control atrial fibrillation is noted to be sent on amiodarone and Mexitil. Patient Condition at Discharge: Fair Plan - Discharge Summary Discharge Rx Participant: No New Discharge Prescriptions: New Spironolactone [Aldactone] 25 mg PO DAILY #90 tab Amiodarone [Cordarone] 200 mg PO TID #180 tab Mexiletine [Mexitil] 150 mg PO Q12HR #60 cap Metoprolol Succinate (ER) [Toprol XL] 200 mg PO DAILY #30 tab Mexiletine HCl 150 mg PO BID #180 cap Metoprolol Succinate [Toprol XL] 200 mg PO DAILY #90 tab Continue Furosemide [Lasix] 20 mg PO DAILY PRN PRN Reason: Edema Sacubitril/Valsartan [Entresto 49 mg-51 mg Tablet] 1 tab PO BID Apixaban [Eliquis] 5 mg PO BID Discontinued Metoprolol Succinate [Toprol XL] 200 mg PO BID Discharge Medication List Apixaban [Eliquis] 5 mg PO BID 11/11/22 [History] Furosemide [Lasix] 20 mg PO DAILY PRN 11/11/22 [History] Sacubitril/Valsartan [Entresto 49 mg-51 mg Tablet] 1 tab PO BID 11/11/22 [History] Amiodarone [Cordarone] 200 mg PO TID #180 tab 08/26/24 [Rx] Metoprolol Succinate (ER) [Toprol XL] 200 mg PO DAILY #30 tab 08/26/24 [Rx] Metoprolol Succinate [Toprol XL] 200 mg PO DAILY #90 tab 08/26/24 [Rx] Mexiletine HCl 150 mg PO BID #180 cap 08/26/24 [Rx] Mexiletine [Mexitil] 150 mg PO Q12HR #60 cap 08/26/24 [Rx] Spironolactone [Aldactone] 25 mg PO DAILY #90 tab 08/26/24 [Rx] Follow up Appointment(s)/Referral(s): Eliel Thompson MD [STAFF PHYSICIAN] - 1 Week Tong Sexton MD [Primary Care Provider] - 1-2 days Activity/Diet/Wound Care/Special Instructions: Take amiodarone 200 mg 3 times a day for 2 weeks then decrease to 200 mg twice a day
[2024-08-26] MEDS ORDERED: MEXILETINE 150 MG CAP PO SCH (21:00)
[2024-08-27] MEDS ORDERED: METOPROLOL SUCCINATE (ER) 100 MG TAB.ER.24H PO SCH (09:00)
--- NOTE | 2024-08-28 20:42 | CDI ---
Documentation Clarification Form Date: 08/28/2024 08:30:59 PM From: Padma Gandhi Phone: Admit Date: 08/21/2024 07:28:00 PM Patient Name: Neil Roberts Visit Number: [id number] Discharge Date: 08/26/2024 07:52:00 PM ATTENTION: The Clinical Documentation Specialists (CDI) and [facility] Coding Staff appreciate your assistance in clarifying documentation. Please respond to the clarification below the line at the bottom and electronically sign. The CDI & [facility] Coding staff will review the response and follow-up if needed. Please note: Queries are made part of the Legal Health Record. If you have any questions, please contact the author of this message via ITS. Doctor/Provider: Cuba Garcia Your patient has the documented diagnosis of unspecified CHF per H&P, Progress Note 08/22 and Consult 08/23. Additional information regarding the type and acuity of CHF is requested. History/Risk Factors: 68yo M, A Fib, NICM, AICD malfx, HTN, VT, persistent A Fib Clinical Indicators: VS/Pulse OX: 96 Echo: LVEF 20 to 25%. Hypokinetic inferoseptal wall. Severelyreducedglobal LV systolic function. Mild RVdilatationwith RVSP estimated at 40 mmHg. Moderate biatrialdilatation. Mild MR. Mild AR. Mild TR Chest x-ray:clinical correlation forvolume overload. Small rightpleural effusion. Treatment: Continue with home dose of Lasix. Continue with metoprolol and Entresto In your professional opinion, can you please clarify the acuity and type of CHF if known? [ ] Acute Systolic Heart Failure (reduced EF) [ @@ ] Chronic Systolic Heart Failure (reduced EF) [ ] Acute on Chronic Systolic Heart Failure (reduced EF) [ ] Acute Diastolic Heart Failure (preserved EF) [ ] Chronic Diastolic Heart Failure (preserved EF) [ ] Acute on Chronic Diastolic Heart Failure (preserved EF) [ ] Acute Systolic & Diastolic Heart Failure [ ] Chronic Systolic & Diastolic Heart Failure [ ] Acute on Chronic Heart Failure Systolic & Diastolic Heart Failure [ ] Other, please specify [ ] Unable to determine (Template Last Revised: June 2020) MTDD
== END 2024-08-26 19:52 | disposition home or self-care (01) | DRG 274 ==
LOC: EC 17:40 → 6NMEDSUR 19:27 → OBSVTOIN 19:28 → 6NMEDSUR 19:51 → 3SCARD 23:21
PROVIDERS: ADMIT Family Medicine; ATTEND Family Medicine
PROC: 4B02XTZ Measurement of Cardiac Defibrillator, External Approach (ICD-10-PCS; 2024-08-26)
PROC: 02583ZZ Destruction of Conduction Mechanism, Percutaneous Approach (ICD-10-PCS; principal; 2024-08-26 10:00)
PROC: 5A2204Z Restoration of Cardiac Rhythm, Single (ICD-10-PCS; 2024-08-26 10:00)
PROC: 5A2204Z Restoration of Cardiac Rhythm, Single (ICD-10-PCS; 2024-08-26 10:00)
PROC: B51N1ZZ Fluoroscopy of Left Upper Extremity Veins using Low Osmolar Contrast (ICD-10-PCS; 2024-08-26 10:00)
DX: T82.9XXA Unspecified complication of cardiac and vascular prosthetic device, implant and graft, initial encounter (principal); I47.20 Ventricular tachycardia, unspecified; I42.8 Other cardiomyopathies; I11.0 Hypertensive heart disease with heart failure; I08.3 Combined rheumatic disorders of mitral, aortic and tricuspid valves; I50.22 Chronic systolic (congestive) heart failure; I48.19 Other persistent atrial fibrillation; I87.1 Compression of vein; Y71.1 Therapeutic (nonsurgical) and rehabilitative cardiovascular devices associated with adverse incidents; I25.2 Old myocardial infarction; Z87.891 Personal history of nicotine dependence; Z79.899 Other long term (current) drug therapy; Z79.01 Long term (current) use of anticoagulants
CPT/HCPCS: 36005; 36415; 71046; 75820; 80048; 80053; 83735; 84484; 85025; 85610; 85730; 92960; 93005; 93306; 93642; 99285

== ENCOUNTER → 2024-10-26 | Outpatient (CLI) | payer MEDICARE | LOC: CPPFTMAIN 07:46 | PROVIDERS: ATTEND Internal Medicine Clinical Cardiac Electrophysiology | DX: R06.02 Shortness of breath (principal); I50.9 Heart failure, unspecified; F17.200 Nicotine dependence, unspecified, uncomplicated; Z88.5 Allergy status to narcotic agent | CPT/HCPCS: 94060; 94726; 94729 ==